=== PATIENT | female | born 1960 | race Caucasian/White ===

== ENCOUNTER 2017-11-09 00:28 | Emergency (ER) | payer MEDICARE, OTHER ==
[~2017-11-09] VITALS: Ht 165.1 cm; Wt 128.8 kg
[~2017-11-09 00:28] MED LIST: AEROECLIPSE II1 EACH MC; ALBU90OI INH; ALBU90OI6 INH; ALBU90OI61 INH; ASPI325 PO; ASPI325EC PO; ATEN25 PO; AZIT250 PO; AZIT500; Antivert12.5 MG PO; BECL40OI INH; BIOTIN FORTE PO; BREO ELLIPTA 11 EACH IH; BUPR150ER; BUPR150ER PO; BUPR75; CALCAVITD PO; CEPH500 PO; CHOL10002; CHOL10002 PO; CINA30; CINA30 PO; CITA20 PO; CLON.1 PO; CLON.5 PO; CODGUAEL PO; Coumadin7.5 MG PO; DAILYVITE PO; DESV50 PO; DILT120 PO; DILT180 PO; DILT60 PO; DOXE2.5 PO; DOXY100 PO; DULO60; Dialyvite Tabl1 EACH PO; ELIQUIS5 MG PO; FISH OIL 1,2001 EACH PO; FISH1000 PO; FLUO20 PO; FLUT110OIA IH; FOLI400 PO; FURO20 PO; FURO80 PO; GABA100 PO; HYDGUAL120 PO; HYDPAM50 PO; IBUP800 PO; LAVAP17G PO; LEVFLO500 PO; LISI20; LISI5; LOVA20 PO; Lisinopril2.5 MG; METO25ER; MIDO5 PO; NEPHROCAP PO; NICO21TP TOP; OXYACE5T PO; OXYC1TAB11; PANT40 PO; PENVK500 PO; POLY17UD PO; PRED20 PO; Percocet 10-321 EACH PO; Pindolol5 MG; Pindolol5 MG PO; Prednisone20 MG PO; Prilosec Otc20 MG PO; QVAR7.3 G1 IH; SEVEC800 PO; SPACE CHAMBER1 EACH MC; SULTRIDS PO; SUPER B-COMPLEX PO; VELPHORO500 MG PO; VENL75ER; VITAMIN D-32000 UNIT PO; VITAMIN D3 PO; Ventolin Soln3 ML INH; WARF10 PO; ZINC; Zithromax250 MG PO; [UNRECOGNIZED DRUG - CODE] SQ; [UNRECOGNIZED DRUG - OTHER]; [UNRECOGNIZED DRUG - OTHER] PO
[2017-11-09] MEDS ORDERED: HYDPAM50 PO (00:52)
[2017-11-09] MEDS ORDERED: Renvela800 MG JT (00:55)
[2017-11-09] MEDS ORDERED: Sensipar90 MG PO (00:55)
[2017-11-09 01:12] LABS: BASOPHILS ABSOLUTE AUTO 0.01 K/mm3 (0.00-0.23); BASOPHILS PERCENT AUTO 0 % (0-2); EOSINOPHILS ABSOLUTE AUTO 0.05 K/mm3 (0.00-0.68); EOSINOPHILS PERCENT AUTO 1 % (0-6); Hematocrit 30.8 % (33.0-51.0); Hemoglobin 9.5 g/dL (11.5-16.0); IMMATURE GRAN ABSOLUTE AUTO 0.01 K/mm3 (0.00-0.10); IMMATURE GRAN PERCENT AUTO 0 % (0-1); LYMPHOCYTES ABSOLUTE AUTO 1.44 K/mm3 (0.84-5.20); LYMPHOCYTES PERCENT AUTO 22 % (21-46); MONOCYTES ABSOLUTE AUTO 0.26 K/mm3 (0.16-1.47); MONOCYTES PERCENT AUTO 4 % (4-13); Mean Corpuscular HGB 30.2 pg (26.0-34.0); Mean Corpuscular HGB Conc 30.8 g/dL (31.5-36.5); Mean Corpuscular Volume 98 fL (80-100); Mean Platelet Volume 10.1 fL (9.1-12.4); NEUTROPHILS PERCENT AUTO 73 % (41-73); Platelet Count 197 K/mm3 (150-400); RDW Coefficient Variation 15.2 % (11.7-14.2); RDW Standard Deviation 54.1 fL (35.1-46.3); Red Blood Cell Count 3.15 M/mm3 (3.80-5.20); White Blood Cell Count 6.47 K/mm3 (4.00-11.30)
[2017-11-09] MEDS ORDERED: Prednisone50 MG PO (01:29)
[2017-11-09 01:31] LABS: Albumin, Blood 3.3 g/dL (3.4-5.0); Bilirubin, Total 0.3 mg/dL (0.1-1.0); Bun/Creatinine Ratio 5.8 (12.0-20.0); Calcium, Blood 8.3 mg/dL (8.5-10.1); Creatinine, Blood 5.2 mg/dL (0.40-1.00); Globulin, Blood 3.4 g/dL (2.2-4.0); Potassium, Blood 4.8 mmol/L (3.5-5.5); Total Protein, Blood 6.7 g/dL (6.4-8.2)
[2018-07-03] MEDS ORDERED: Prednisone20 MG PO (15:11)
== END 2017-11-09 02:12 | disposition home or self-care (01) ==
LOC: ER 00:28
PROVIDERS: Emergency Medicine
DX: J44.1 Chronic obstructive pulmonary disease with (acute) exacerbation (principal); I12.9 Hypertensive chronic kidney disease with stage 1 through stage 4 chronic kidney disease, or unspecified chronic kidney disease; N18.9 Chronic kidney disease, unspecified; I48.91 Unspecified atrial fibrillation; E66.01 Morbid (severe) obesity due to excess calories; F17.210 Nicotine dependence, cigarettes, uncomplicated; Z88.5 Allergy status to narcotic agent; Z99.2 Dependence on renal dialysis; Z88.8 Allergy status to other drugs, medicaments and biological substances; Z79.899 Other long term (current) drug therapy; Z79.52 Long term (current) use of systemic steroids; Z90.49 Acquired absence of other specified parts of digestive tract; Z90.89 Acquired absence of other organs
CPT/HCPCS: 36415; 71046; 80053; 85025; 93005; 93010; 94640; 99283; J1100

== ENCOUNTER 2017-11-18 11:49 | Inpatient (IN) | payer MEDICARE, OTHER ==
[~2017-11-18] VITALS: Ht 170.2 cm; Wt 134.0 kg
[~2017-11-18 11:49] MED LIST changes: +Prednisone50 MG PO; +Renvela800 MG JT; +Sensipar90 MG PO
[2017-11-18 12:29] LABS: BASOPHILS ABSOLUTE AUTO 0.01 K/mm3 (0.00-0.23); BASOPHILS PERCENT AUTO 0 % (0-2); EOSINOPHILS ABSOLUTE AUTO 0.02 K/mm3 (0.00-0.68); EOSINOPHILS PERCENT AUTO 0 % (0-6); Hematocrit 32.2 % (33.0-51.0); IMMATURE GRAN ABSOLUTE AUTO 0.17 K/mm3 (0.00-0.10); IMMATURE GRAN PERCENT AUTO 2 % (0-1); LYMPHOCYTES ABSOLUTE AUTO 0.56 K/mm3 (0.84-5.20); LYMPHOCYTES PERCENT AUTO 7 % (21-46); MONOCYTES PERCENT AUTO 1 % (4-13); Mean Corpuscular HGB 29.5 pg (26.0-34.0); Mean Corpuscular HGB Conc 31.1 g/dL (31.5-36.5); Mean Platelet Volume 9.7 fL (9.1-12.4); NEUTROPHILS ABSOLUTE AUTO 7.63 K/mm3 (1.96-9.15); NEUTROPHILS PERCENT AUTO 90 % (41-73); Platelet Count 244 K/mm3 (150-400); RDW Coefficient Variation 14.5 % (11.7-14.2); RDW Standard Deviation 50.2 fL (35.1-46.3); Red Blood Cell Count 3.39 M/mm3 (3.80-5.20); White Blood Cell Count 8.49 K/mm3 (4.00-11.30)
[2017-11-18 12:31] LABS: Mean Corpuscular Volume 95 fL (80-100)
[2017-11-18 12:51] LABS: Albumin/Globulin Ratio 0.8 (0.8-1.8); Bilirubin, Total 0.3 mg/dL (0.1-1.0); Bun/Creatinine Ratio 6.3 (12.0-20.0); Calcium, Blood 7.5 mg/dL (8.5-10.1); Creatinine, Blood 4.13 mg/dL (0.40-1.00); Potassium, Blood 4.2 mmol/L (3.5-5.5)
[2017-11-19 05:41] LABS: Albumin, Blood 2.7 g/dL (3.4-5.0); Anion Gap 15 mmol/L (6-16); Blood Urea Nitrogen 43 mg/dL (8-24); Bun/Creatinine Ratio 7.9 (12.0-20.0); CO2, Blood 25 mmol/L (21-32); Calcium, Blood 7.1 mg/dL (8.5-10.1); Chloride, Blood 98 mmol/L (98-108); Creatinine, Blood 5.46 mg/dL (0.40-1.00); Glomerular Filtration Rate 9 (60-); Glucose, Blood 205 mg/dL (70-99); Potassium, Blood 5.1 mmol/L (3.5-5.5); Sodium, Blood 138 mmol/L (136-145)
[2017-11-19 10:13] LABS: BASOPHILS PERCENT AUTO 0 % (0-2); EOSINOPHILS PERCENT AUTO 0 % (0-6); Hematocrit 29.6 % (33.0-51.0); Hemoglobin 9.3 g/dL (11.5-16.0); IMMATURE GRAN ABSOLUTE AUTO 0.18 K/mm3 (0.00-0.10); IMMATURE GRAN PERCENT AUTO 2 % (0-1); LYMPHOCYTES ABSOLUTE AUTO 0.77 K/mm3 (0.84-5.20); LYMPHOCYTES PERCENT AUTO 9 % (21-46); MONOCYTES ABSOLUTE AUTO 0.14 K/mm3 (0.16-1.47); MONOCYTES PERCENT AUTO 2 % (4-13); Mean Corpuscular HGB 29.2 pg (26.0-34.0); Mean Corpuscular HGB Conc 31.4 g/dL (31.5-36.5); Mean Corpuscular Volume 93 fL (80-100); Mean Platelet Volume 9.9 fL (9.1-12.4); NEUTROPHILS ABSOLUTE AUTO 7.23 K/mm3 (1.96-9.15); NEUTROPHILS PERCENT AUTO 87 % (41-73); Platelet Count 224 K/mm3 (150-400); RDW Coefficient Variation 14.3 % (11.7-14.2); RDW Standard Deviation 48.6 fL (35.1-46.3); Red Blood Cell Count 3.18 M/mm3 (3.80-5.20); White Blood Cell Count 8.32 K/mm3 (4.00-11.30)
[2017-11-20 06:01] LABS: HCV Non Reactive (NR)
[2017-11-20 10:50] LABS: Albumin, Blood 3.1 g/dL (3.4-5.0); Anion Gap 14 mmol/L (6-16); Blood Urea Nitrogen 64 mg/dL (8-24); Bun/Creatinine Ratio 9.7 (12.0-20.0); CO2, Blood 26 mmol/L (21-32); Chloride, Blood 96 mmol/L (98-108); Glomerular Filtration Rate 7 (60-); Glucose, Blood 187 mg/dL (70-99); Phosphorus, Blood 3.2 mg/dL (2.5-4.9); Potassium, Blood 4.9 mmol/L (3.5-5.5); Sodium, Blood 136 mmol/L (136-145)
[2017-11-21 09:40] LABS: BASOPHILS ABSOLUTE AUTO 0.02 K/mm3 (0.00-0.23); BASOPHILS PERCENT AUTO 0 % (0-2); EOSINOPHILS PERCENT AUTO 0 % (0-6); Hematocrit 30.7 % (33.0-51.0); Hemoglobin 9.6 g/dL (11.5-16.0); IMMATURE GRAN ABSOLUTE AUTO 0.73 K/mm3 (0.00-0.10); IMMATURE GRAN PERCENT AUTO 5 % (0-1); LYMPHOCYTES ABSOLUTE AUTO 0.95 K/mm3 (0.84-5.20); LYMPHOCYTES PERCENT AUTO 7 % (21-46); MONOCYTES ABSOLUTE AUTO 0.43 K/mm3 (0.16-1.47); MONOCYTES PERCENT AUTO 3 % (4-13); Mean Corpuscular HGB 29.4 pg (26.0-34.0); Mean Corpuscular HGB Conc 31.3 g/dL (31.5-36.5); Mean Corpuscular Volume 94 fL (80-100); Mean Platelet Volume 9.5 fL (9.1-12.4); NEUTROPHILS ABSOLUTE AUTO 12.54 K/mm3 (1.96-9.15); NEUTROPHILS PERCENT AUTO 86 % (41-73); Platelet Count 265 K/mm3 (150-400); RDW Coefficient Variation 14.5 % (11.7-14.2); RDW Standard Deviation 50.5 fL (35.1-46.3); Red Blood Cell Count 3.27 M/mm3 (3.80-5.20); White Blood Cell Count 14.67 K/mm3 (4.00-11.30)
[2017-11-21 10:14] LABS: Bun/Creatinine Ratio 12.7 (12.0-20.0); Calcium, Blood 7.9 mg/dL (8.5-10.1); Creatinine, Blood 5.73 mg/dL (0.40-1.00); Potassium, Blood 5.3 mmol/L (3.5-5.5)
[2017-11-22 09:19] LABS: Bun/Creatinine Ratio 14.5 (12.0-20.0); Calcium, Blood 7.9 mg/dL (8.5-10.1); Creatinine, Blood 5.53 mg/dL (0.40-1.00)
[2017-11-22] MEDS ORDERED: Azithromycin500 MG PO (13:14)
[2017-11-22] MEDS ORDERED: CEFU50SU PO (13:15)
[2018-07-03] MEDS ORDERED: Prednisone20 MG PO (15:11)
== END 2017-11-22 15:10 | disposition home or self-care (01) | DRG 682 ==
LOC: ER 11:49 → ERHOLD 17:36 → MEDS 17:36 → ENPENDDIS 11-22 11:00 → MEDS 11-22 15:10
PROVIDERS: Emergency Medicine; Family Medicine; Internal Medicine
PROC: 5A1D70Z Performance of Urinary Filtration, Intermittent, Less than 6 Hours Per Day (ICD-10-PCS; principal; 2017-11-19)
PROC: 5A1D70Z Performance of Urinary Filtration, Intermittent, Less than 6 Hours Per Day (ICD-10-PCS; 2017-11-21)
DX: I12.0 Hypertensive chronic kidney disease with stage 5 chronic kidney disease or end stage renal disease (principal); J18.1 Lobar pneumonia, unspecified organism; J96.01 Acute respiratory failure with hypoxia; N18.6 End stage renal disease; I48.0 Paroxysmal atrial fibrillation; E66.01 Morbid (severe) obesity due to excess calories; J44.1 Chronic obstructive pulmonary disease with (acute) exacerbation; Z68.42 Body mass index [BMI] 45.0-49.9, adult; E87.70 Fluid overload, unspecified; D63.1 Anemia in chronic kidney disease; E78.5 Hyperlipidemia, unspecified; F17.210 Nicotine dependence, cigarettes, uncomplicated; G89.29 Other chronic pain; Z79.52 Long term (current) use of systemic steroids; Z99.2 Dependence on renal dialysis
CPT/HCPCS: 36415; 71046; 80048; 80053; 80069; 80074; 82947; 83880; 85025; 86706; 87040; 93005; 93010; 94010; 94640; 94664; 94667; 94760; 98960; 99285; 99407; J0696; J0881; J2930; J7030

== ENCOUNTER → 2018-03-13 | Outpatient (CLI) | payer MEDICARE, OTHER ==
[~2018-03-13] MED LIST changes: +Azithromycin500 MG PO; +CEFU50SU PO
[2018-03-14 10:36] LABS: Candida species (DNA Probe) Positive (NEGATIVE); G. vaginalis (DNA Probe) Positive (NEGATIVE); T. vaginalis (DNA Probe) Negative (NEGATIVE)
== END | disposition home or self-care (01) ==
LOC: LAB SHORT 11:13 → LAB 11:13
PROVIDERS: Obstetrics & Gynecology
DX: N76.0 Acute vaginitis (principal)
CPT/HCPCS: 87480; 87510; 87660

== ENCOUNTER → 2018-05-14 | Outpatient (CLI) | payer MEDICARE, OTHER ==
[2018-05-14 12:38] LABS: Bilirubin, Urine Neg (Neg); Blood, Urine 1+ (Neg); Glucose Qualitative, Urine Neg (Neg); Ketones, Urine Neg (Neg); Leukocyte Esterase, Urine Neg (Neg); Nitrite, Urine Neg (Neg); Protein, Urine 3+ (Neg); Urobilinogen, Urine NORM (Normal)
[2018-05-14 12:59] LABS: Appearance, Urine Clear (Clear); Color, Urine Yellow (P-Yellow)
[2018-05-14 13:00] LABS: Bacteria Few /hpf; Squamous Epithelial Cells Few /hpf (Few); White Blood Cells, Urine 0-2 /hpf (0-5)
== END ==
LOC: LAB DAV 09:30
PROVIDERS: Internal Medicine
DX: R10.9 Unspecified abdominal pain (principal)
CPT/HCPCS: 81001

== ENCOUNTER 2018-05-31 01:34 | Emergency (ER) | payer MEDICARE, OTHER ==
[~2018-05-31] VITALS: Ht 170.2 cm; Wt 128.8 kg
[2018-05-31] MEDS ORDERED: Sensipar90 MG PO (02:20)
== END 2018-05-31 02:50 | disposition home or self-care (01) ==
LOC: ER 01:34
DX: M54.5 Low back pain (principal); G89.29 Other chronic pain; Z88.5 Allergy status to narcotic agent; Z88.8 Allergy status to other drugs, medicaments and biological substances; Z79.899 Other long term (current) drug therapy; Z91.013 Allergy to seafood; Z79.2 Long term (current) use of antibiotics; I10 Essential (primary) hypertension; J44.9 Chronic obstructive pulmonary disease, unspecified; I48.91 Unspecified atrial fibrillation; F17.210 Nicotine dependence, cigarettes, uncomplicated
CPT/HCPCS: 99283

== ENCOUNTER → 2018-10-10 | Outpatient (CLI) | payer MEDICARE, OTHER ==
[2018-10-10 12:00] LABS: BASOPHILS ABSOLUTE AUTO 0.02 K/mm3 (0.00-0.23); BASOPHILS PERCENT AUTO 0 % (0-2); EOSINOPHILS ABSOLUTE AUTO 0.09 K/mm3 (0.00-0.68); EOSINOPHILS PERCENT AUTO 2 % (0-6); Hemoglobin 8.3 g/dL (11.5-16.0); IMMATURE GRAN ABSOLUTE AUTO 0.02 K/mm3 (0.00-0.10); IMMATURE GRAN PERCENT AUTO 0 % (0-1); LYMPHOCYTES PERCENT AUTO 17 % (21-46); MONOCYTES ABSOLUTE AUTO 0.56 K/mm3 (0.16-1.47); MONOCYTES PERCENT AUTO 10 % (4-13); Mean Corpuscular HGB 28.4 pg (26.0-34.0); Mean Corpuscular HGB Conc 30.7 g/dL (31.5-36.5); Mean Corpuscular Volume 93 fL (80-100); Mean Platelet Volume 9.4 fL (9.1-12.4); NEUTROPHILS ABSOLUTE AUTO 3.88 K/mm3 (1.96-9.15); NEUTROPHILS PERCENT AUTO 71 % (41-73); Platelet Count 224 K/mm3 (150-400); RDW Coefficient Variation 15.8 % (11.7-14.2); RDW Standard Deviation 53.4 fL (35.1-46.3); Red Blood Cell Count 2.92 M/mm3 (3.80-5.20); White Blood Cell Count 5.47 K/mm3 (4.00-11.30)
[2018-10-10 12:14] LABS: Bun/Creatinine Ratio 5.3 (12.0-20.0); Calcium, Blood 8.6 mg/dL (8.5-10.1); Creatinine, Blood 3.98 mg/dL (0.40-1.00); Potassium, Blood 3.5 mmol/L (3.5-5.5)
[2018-10-10 12:16] LABS: Thyroid Stimulating Hormone 0.956 uIU/mL (0.360-4.800)
== END | disposition home or self-care (01) ==
LOC: LAB SHORT 09:25 → LAB 09:25
PROVIDERS: Nurse Practitioner Psychiatric/Mental Health
DX: F33.2 Major depressive disorder, recurrent severe without psychotic features (principal); Z79.899 Other long term (current) drug therapy
CPT/HCPCS: 80048; 82306; 82607; 82746; 83036; 84443; 85025

== ENCOUNTER 2019-10-18 10:24 | Day surgery (SDC) | payer MEDICARE, OTHER ==
[~2019-10-18] VITALS: Ht 170.2 cm; Wt 108.6 kg
[2019-10-18] MEDS ORDERED: WARF10 PO (10:55)
[2019-10-18] MEDS ORDERED: METO25 PO (10:56)
[2019-10-18] MEDS ORDERED: GABA100 PO (10:56)
[2019-10-18] MEDS ORDERED: OMEPRAZOLE20 MG PO (10:56)
[2019-10-18] MEDS ORDERED: AMLO10 PO (10:57)
[2019-10-18] MEDS ORDERED: Benztropine Me0.5 MG PO (10:57)
[2019-10-18] MEDS ORDERED: ARIP10 PO (10:58)
[2019-10-18] MEDS ORDERED: FISH OIL 1,001000 MG PO (10:58)
[2019-10-18] MEDS ORDERED: PERCOCET 10-321 EACH PO (10:58)
[2019-10-18] MEDS ORDERED: BREO ELLIPTA 21 EACH INH (10:59)
[2019-10-18] MEDS ORDERED: VOLTAREN100 GM TOP (11:00)
[2019-10-18] MEDS ORDERED: Ventolin/Prove6.7 GM INH (11:00)
[2019-10-18 11:45] LABS: BASOPHILS ABSOLUTE AUTO 0.03 K/mm3 (0.00-0.23); BASOPHILS PERCENT AUTO 1 % (0-2); EOSINOPHILS ABSOLUTE AUTO 0.08 K/mm3 (0.00-0.68); EOSINOPHILS PERCENT AUTO 2 % (0-6); Hematocrit 36.8 % (33.0-51.0); Hemoglobin 12.1 g/dL (11.5-16.0); IMMATURE GRAN ABSOLUTE AUTO 0.01 K/mm3 (0.00-0.10); IMMATURE GRAN PERCENT AUTO 0 % (0-1); LYMPHOCYTES PERCENT AUTO 37 % (21-46); MONOCYTES ABSOLUTE AUTO 0.36 K/mm3 (0.16-1.47); MONOCYTES PERCENT AUTO 8 % (4-13); Mean Corpuscular HGB 30.9 pg (26.0-34.0); Mean Corpuscular HGB Conc 32.9 g/dL (31.5-36.5); Mean Corpuscular Volume 94 fL (80-100); NEUTROPHILS ABSOLUTE AUTO 2.24 K/mm3 (1.96-9.15); NEUTROPHILS PERCENT AUTO 52 % (41-73); Platelet Count 125 K/mm3 (150-400); RDW Coefficient Variation 13.4 % (11.7-14.2); Red Blood Cell Count 3.92 M/mm3 (3.80-5.20); White Blood Cell Count 4.32 K/mm3 (4.00-11.30)
[2019-10-18 11:57] LABS: International Normalized Ratio 1.08; Prothrombin Time Results 11.4 Sec (9.7-11.5)
[2019-10-18 12:03] LABS: Bun/Creatinine Ratio 5.1 (12.0-20.0); Calcium, Blood 9.3 mg/dL (8.5-10.1); Creatinine, Blood 3.32 mg/dL (0.40-1.00); Potassium, Blood 4.2 mmol/L (3.5-5.5)
--- NOTE | 2019-10-18 13:14 | NUR ---
DISCHARGE PT REMAINED A&OX3 DURING RECOVERY AND DENIED ANY PAIN. IV DC'D WITH CANULA IN TACT. DISCHARGE PAPERWORK GONE OVER WITH PT AND SON. PT AND SON VERVBALLY STATED THEY UNDERSTANDING OF THE DISCHARGE EDUCATION AND DENIED ANY QUESTIONS AT THIS TIME. PT REFUSED WHEELCHAIR AND WALKED OUT WITH SON. MEDICATIONS WASTED WITH GERALDINE Ferrell RN.
== END 2019-10-18 22:53 | disposition home or self-care (01) ==
LOC: MHTC 10:24
PROVIDERS: Internal Medicine Cardiovascular Disease
DX: I48.19 Other persistent atrial fibrillation (principal); I27.20 Pulmonary hypertension, unspecified; I13.2 Hypertensive heart and chronic kidney disease with heart failure and with stage 5 chronic kidney disease, or end stage renal disease; N18.6 End stage renal disease; D63.1 Anemia in chronic kidney disease; I08.1 Rheumatic disorders of both mitral and tricuspid valves; E78.5 Hyperlipidemia, unspecified; J44.9 Chronic obstructive pulmonary disease, unspecified; F17.210 Nicotine dependence, cigarettes, uncomplicated; E66.01 Morbid (severe) obesity due to excess calories; Z99.2 Dependence on renal dialysis; Z88.8 Allergy status to other drugs, medicaments and biological substances; Z88.5 Allergy status to narcotic agent; Z79.01 Long term (current) use of anticoagulants; Z79.899 Other long term (current) drug therapy; Z68.39 Body mass index [BMI] 39.0-39.9, adult; Z88.4 Allergy status to anesthetic agent
CPT/HCPCS: 80048; 85025; 85610; 93312; 93325; 99152; J2250; J3010; J7030

== ENCOUNTER 2020-09-12 22:54 | Emergency (ER) | payer MEDICARE, OTHER ==
[~2020-09-12] VITALS: Ht 170.2 cm; Wt 113.4 kg
[~2020-09-12 22:54] MED LIST changes: +AMLO10 PO; +ARIP10 PO; +BREO ELLIPTA 21 EACH INH; +Benztropine Me0.5 MG PO; +FISH OIL 1,001000 MG PO; +HYDR1TAB94 PO; +METO25 PO; +OMEPRAZOLE20 MG PO; +PERCOCET 10-321 EACH PO; +VOLTAREN100 GM TOP; +Ventolin/Prove6.7 GM INH
[2020-09-13 00:26] LABS: Influenza A, PCR Negative (NEGATIVE); Influenza B, PCR Negative (NEGATIVE); Resp Syncytial Virus, PCR Negative (NEGATIVE); SARS-Cov-2 (COVID-19) PCR, MMC Negative (NEGATIVE)
[2020-09-13] MEDS ORDERED: ALBU2.5V5 INH (01:51)
[2020-09-13] MEDS ORDERED: AEROECLIPSE II1 EACH MC (01:51)
[2020-09-13] MEDS ORDERED: Prednisone50 MG PO (01:52)
== END 2020-09-13 02:23 | disposition home or self-care (01) ==
LOC: ER 22:54
PROVIDERS: Emergency Medicine
DX: J45.901 Unspecified asthma with (acute) exacerbation (principal); I48.91 Unspecified atrial fibrillation; I12.0 Hypertensive chronic kidney disease with stage 5 chronic kidney disease or end stage renal disease; N18.6 End stage renal disease; J44.9 Chronic obstructive pulmonary disease, unspecified; F17.210 Nicotine dependence, cigarettes, uncomplicated; Z79.899 Other long term (current) drug therapy; Z79.01 Long term (current) use of anticoagulants; Z20.828 Contact with and (suspected) exposure to other viral communicable diseases; Z88.4 Allergy status to anesthetic agent; Z88.5 Allergy status to narcotic agent; Z88.8 Allergy status to other drugs, medicaments and biological substances; Z88.1 Allergy status to other antibiotic agents
CPT/HCPCS: 0241U; 71045; 93005; 93010; 94640; 99285-25; J7512

== ENCOUNTER 2021-03-20 13:46 | Emergency (ER) | payer MEDICARE, OTHER ==
[~2021-03-20] VITALS: Ht 170.2 cm; Wt 113.4 kg
[~2021-03-20 13:46] MED LIST changes: +ALBU2.5V5 INH; +DELTASONE20 MG PO
[2021-03-20 14:54] LABS: BASOPHILS ABSOLUTE AUTO 0.03 K/mm3 (0.00-0.23); BASOPHILS PERCENT AUTO 0 % (0-2); EOSINOPHILS PERCENT AUTO 1 % (0-6); Hematocrit 36.4 % (33.0-51.0); IMMATURE GRAN ABSOLUTE AUTO 0.03 K/mm3 (0.00-0.10); IMMATURE GRAN PERCENT AUTO 0 % (0-1); LYMPHOCYTES ABSOLUTE AUTO 1.89 K/mm3 (0.84-5.20); LYMPHOCYTES PERCENT AUTO 24 % (21-46); MONOCYTES ABSOLUTE AUTO 0.51 K/mm3 (0.16-1.47); MONOCYTES PERCENT AUTO 6 % (4-13); Mean Corpuscular Volume 100 fL (80-100); Mean Platelet Volume 10.1 fL (9.1-12.4); NEUTROPHILS ABSOLUTE AUTO 5.43 K/mm3 (1.96-9.15); NEUTROPHILS PERCENT AUTO 68 % (41-73); Platelet Count 193 K/mm3 (150-400); RDW Coefficient Variation 14.5 % (11.7-14.2); RDW Standard Deviation 53.4 fL (35.1-46.3); Red Blood Cell Count 3.64 M/mm3 (3.80-5.20); White Blood Cell Count 7.99 K/mm3 (4.00-11.30)
[2021-03-20 15:14] LABS: Alanine Aminotransfer (ALT/SGP 22 U/L (12-78); Albumin, Blood 3.2 g/dL (3.4-5.0); Albumin/Globulin Ratio 0.8 (0.8-1.8); Alk Phos 180 U/L (50-136); Anion Gap 5 mmol/L (6-16); Aspartate Aminotrans (AST/SGOT 10 U/L (12-37); Bilirubin, Total 0.4 mg/dL (0.1-1.0); Blood Urea Nitrogen 18 mg/dL (8-24); CO2, Blood 36 mmol/L (21-32); Calcium, Blood 8.3 mg/dL (8.5-10.1); Chloride, Blood 96 mmol/L (98-108); Globulin, Blood 3.8 g/dL (2.2-4.0); Glomerular Filtration Rate 14 (60-); Glucose, Blood 133 mg/dL (70-99); Potassium, Blood 3.6 mmol/L (3.5-5.5); Sodium, Blood 137 mmol/L (136-145); Troponin I <0.015 ng/mL (0.000-0.040)
== END 2021-03-20 19:00 | disposition home or self-care (01) ==
LOC: ER 13:46
PROVIDERS: Physician Assistant
DX: J81.1 Chronic pulmonary edema (principal); J44.9 Chronic obstructive pulmonary disease, unspecified; F17.210 Nicotine dependence, cigarettes, uncomplicated; Z79.899 Other long term (current) drug therapy; Z88.5 Allergy status to narcotic agent; Z88.8 Allergy status to other drugs, medicaments and biological substances
CPT/HCPCS: 36415; 71046; 80053; 83880; 84484; 85025; 93005; 93010; 99284-25

== ENCOUNTER 2021-04-06 14:05 | Emergency (ER) | payer MEDICARE, OTHER ==
[~2021-04-06] VITALS: Ht 170.2 cm; Wt 113.4 kg
[2021-04-06] MEDS ORDERED: FURO80 PO (15:38)
== END 2021-04-06 15:59 | disposition home or self-care (01) ==
LOC: ER 14:05
DX: E87.70 Fluid overload, unspecified (principal); J44.9 Chronic obstructive pulmonary disease, unspecified; I12.0 Hypertensive chronic kidney disease with stage 5 chronic kidney disease or end stage renal disease; N18.6 End stage renal disease; Z88.5 Allergy status to narcotic agent; Z88.8 Allergy status to other drugs, medicaments and biological substances; Z79.52 Long term (current) use of systemic steroids; Z79.899 Other long term (current) drug therapy; R42 Dizziness and giddiness; J98.11 Atelectasis
CPT/HCPCS: 71046; 80048; 83880; 84443; 85025; 93005; 93010; 99283-25; A9270

== ENCOUNTER 2022-05-04 18:30 | Emergency (ER) | payer MEDICARE, OTHER ==
[~2022-05-04] VITALS: Ht 170.2 cm; Wt 108.9 kg
[~2022-05-04 18:30] MED LIST changes: +ARIPIPRAZOLE30 MG PO; +DESVENLAFAXINE100 M3 PO; +OXYCODONE ACET PO; -Renvela800 MG JT; +Renvela800 MG PO
[2022-05-04 19:50] LABS: Influenza B, PCR NEGATIVE (NEGATIVE); Resp Syncytial Virus, PCR NEGATIVE (NEGATIVE); SARS-Cov-2 (COVID-19) PCR, MMC NEGATIVE (NEGATIVE)
[2022-05-04 20:03] LABS: Influenza A, PCR POSITIVE (NEGATIVE)
[2022-05-04 21:13] LABS: BASOPHILS ABSOLUTE AUTO 0.01 K/mm3 (0.00-0.23); BASOPHILS PERCENT AUTO 0 % (0-2); EOSINOPHILS ABSOLUTE AUTO 0.02 K/mm3 (0.00-0.68); EOSINOPHILS PERCENT AUTO 0 % (0-6); Hematocrit 30.6 % (33.0-51.0); Hemoglobin 9.8 g/dL (11.5-16.0); IMMATURE GRAN ABSOLUTE AUTO 0.07 K/mm3 (0.00-0.10); IMMATURE GRAN PERCENT AUTO 2 % (0-1); LYMPHOCYTES ABSOLUTE AUTO 1.44 K/mm3 (0.84-5.20); LYMPHOCYTES PERCENT AUTO 31 % (21-46); MONOCYTES ABSOLUTE AUTO 0.35 K/mm3 (0.16-1.47); MONOCYTES PERCENT AUTO 7 % (4-13); Mean Corpuscular HGB 32.5 pg (26.0-34.0); Mean Corpuscular Volume 101 fL (80-100); Mean Platelet Volume 10.4 fL (9.1-12.4); NEUTROPHILS ABSOLUTE AUTO 2.83 K/mm3 (1.96-9.15); NEUTROPHILS PERCENT AUTO 60 % (41-73); Platelet Count 199 K/mm3 (150-400); RDW Coefficient Variation 13.5 % (11.7-14.2); RDW Standard Deviation 50.1 fL (35.1-46.3); Red Blood Cell Count 3.02 M/mm3 (3.80-5.20); White Blood Cell Count 4.72 K/mm3 (4.00-11.30)
[2022-05-04 21:30] LABS: Albumin, Blood 2.9 g/dL (3.4-5.0); Albumin/Globulin Ratio 0.7 (0.8-1.8); Bilirubin, Total 0.4 mg/dL (0.1-1.0); Bun/Creatinine Ratio 4.8 (12.0-20.0); Calcium, Blood 9.9 mg/dL (8.5-10.1); Creatinine, Blood 4.38 mg/dL (0.40-1.00); Globulin, Blood 3.9 g/dL (2.2-4.0); Potassium, Blood 3.9 mmol/L (3.5-5.5); Total Protein, Blood 6.8 g/dL (6.4-8.2)
[2022-05-04] MEDS ORDERED: Vibramycin100 MG PO (22:31)
== END 2022-05-04 22:51 | disposition home or self-care (01) ==
LOC: ER 18:30
PROVIDERS: Student in an Organized Health Care Education/Training Program
DX: J10.1 Influenza due to other identified influenza virus with other respiratory manifestations (principal); I12.0 Hypertensive chronic kidney disease with stage 5 chronic kidney disease or end stage renal disease; N18.6 End stage renal disease; Z99.2 Dependence on renal dialysis; J44.9 Chronic obstructive pulmonary disease, unspecified; F17.200 Nicotine dependence, unspecified, uncomplicated; Z79.899 Other long term (current) drug therapy; Z88.5 Allergy status to narcotic agent; Z88.8 Allergy status to other drugs, medicaments and biological substances; Z20.822 Contact with and (suspected) exposure to COVID-19
CPT/HCPCS: 0241U; 71046; 80053; 84484; 85025; 93005; 93010; J0696

== ENCOUNTER 2022-05-08 08:20 | Inpatient (IN) | payer MEDICARE, OTHER ==
[~2022-05-08] VITALS: Ht 180.3 cm; Wt 104.5 kg
[~2022-05-08 08:20] MED LIST changes: +Vibramycin100 MG PO
[2022-05-08 09:25] LABS: BASOPHILS ABSOLUTE AUTO 0.01 K/mm3 (0.00-0.23); BASOPHILS PERCENT AUTO 0 % (0-2); EOSINOPHILS PERCENT AUTO 0 % (0-6); Hematocrit 28.8 % (33.0-51.0); Hemoglobin 9.6 g/dL (11.5-16.0); IMMATURE GRAN ABSOLUTE AUTO 0.13 K/mm3 (0.00-0.10); IMMATURE GRAN PERCENT AUTO 3 % (0-1); LYMPHOCYTES ABSOLUTE AUTO 0.49 K/mm3 (0.84-5.20); LYMPHOCYTES PERCENT AUTO 10 % (21-46); MONOCYTES ABSOLUTE AUTO 0.22 K/mm3 (0.16-1.47); MONOCYTES PERCENT AUTO 5 % (4-13); Mean Corpuscular HGB Conc 33.3 g/dL (31.5-36.5); Mean Corpuscular Volume 99 fL (80-100); Mean Platelet Volume 9.8 fL (9.1-12.4); NEUTROPHILS ABSOLUTE AUTO 3.97 K/mm3 (1.96-9.15); NEUTROPHILS PERCENT AUTO 82 % (41-73); Platelet Count 184 K/mm3 (150-400); RDW Coefficient Variation 13.3 % (11.7-14.2); RDW Standard Deviation 48.2 fL (35.1-46.3); Red Blood Cell Count 2.91 M/mm3 (3.80-5.20); White Blood Cell Count 4.82 K/mm3 (4.00-11.30)
[2022-05-08 09:26] LABS: Base Excess Venous 14.5 mmol/L; Bicarbonate Venous 36.8 mmol/L (24.0-30.0); PCO2 Venous 48.3 mmHg (38-42)
[2022-05-08 09:47] LABS: Albumin, Blood 2.7 g/dL (3.4-5.0); Albumin/Globulin Ratio 0.7 (0.8-1.8); Bilirubin, Total 0.4 mg/dL (0.1-1.0); Bun/Creatinine Ratio 4.9 (12.0-20.0); Calcium, Blood 9.8 mg/dL (8.5-10.1); Creatinine, Blood 4.5 mg/dL (0.40-1.00); Globulin, Blood 4.1 g/dL (2.2-4.0); Magnesium, Blood 2.1 mg/dL (1.6-2.4); Potassium, Blood 4.8 mmol/L (3.5-5.5); Total Protein, Blood 6.8 g/dL (6.4-8.2)
[2022-05-08 10:05] LABS: Influenza B, PCR NEGATIVE (NEGATIVE); Resp Syncytial Virus, PCR NEGATIVE (NEGATIVE); SARS-Cov-2 (COVID-19) PCR, MMC NEGATIVE (NEGATIVE)
[2022-05-08 10:07] LABS: Influenza A, PCR POSITIVE (NEGATIVE)
[2022-05-08] MEDS ORDERED: MIDODRINE HCL10 M9 PO (21:07)
[2022-05-08] MEDS ORDERED: DOXYCYCLINE HY100 M1 PO (21:09)
[2022-05-09 05:27] LABS: Hematocrit 28.8 % (33.0-51.0); Hemoglobin 9.3 g/dL (11.5-16.0); Mean Corpuscular HGB 32.5 pg (26.0-34.0); Mean Corpuscular HGB Conc 32.3 g/dL (31.5-36.5); Mean Corpuscular Volume 101 fL (80-100); Mean Platelet Volume 10.1 fL (9.1-12.4); Platelet Count 187 K/mm3 (150-400); RDW Coefficient Variation 13.2 % (11.7-14.2); RDW Standard Deviation 48.5 fL (35.1-46.3); Red Blood Cell Count 2.86 M/mm3 (3.80-5.20); White Blood Cell Count 7.25 K/mm3 (4.00-11.30)
[2022-05-09 06:02] LABS: Bun/Creatinine Ratio 6.2 (12.0-20.0); Calcium, Blood 9.7 mg/dL (8.5-10.1); Creatinine, Blood 5.2 mg/dL (0.40-1.00); Potassium, Blood 4.4 mmol/L (3.5-5.5)
--- NOTE | 2022-05-09 06:08 | NUR ---
SHIFT SUMMARY NOC: PT TO FLOOR AT 1945. PT ALERT/ORIENTATED*2-3, CONFUSED, POOR HISTORIAN FOR ADMISSION QUESTIONS, AND MEDICATION REVIEW. AFIB 50-70'S WITH FREQUENT PAUSES AROUND 2 SECONDS. WHEN PT IN DEEP SLEEP HR TOUCHES 39. ON 2L NC, LUNGS RIGHT COARSE/WHEEZY, LEFT WHEEZY, NON PRODUCTIVE COUGH. PT OLIGURIC. HD FISTULA TO LEFT UPPER ARM. SBA TO COMMODE.
--- NOTE | 2022-05-09 08:00 | NUR ---
pt laying in bed watching tv, a/ox3, cooperative with care, follows commands lungs are clear in upper oscar, dim in bases, resp even and unlabored, no cough noted, hrirr, murmur noted, tele in place running afib per monitor, see strip, trace edema noted, ppp faint, cap refill <3sec, vs stable, afebrile, iv site is clear and patent, btx4, abd flat soft nontender, voids without diff, scant urine output, skin dusky but c/w/d, maew, stand by assist to move, jil, call light in reach.
--- NOTE | 2022-05-09 09:00 | NUR ---
pt going to dialysis via bed with memorial marker designer in attendence.
--- NOTE | 2022-05-09 12:04 | NUR ---
tele [facility] tech called to report pt had a 3 second pause, will notify when she rounds. pt still in dialysis.
[2022-05-09 17:29] LABS: Vancomycin, Random 21.2 ug/mL
--- NOTE | 2022-05-09 18:54 | NUR ---
no acute changes this shift, resting quietly in bed watching tv, no complaints after h/a went away. call light in reach.
[2022-05-10 05:17] LABS: BASOPHILS PERCENT AUTO 0 % (0-2); EOSINOPHILS ABSOLUTE AUTO 0.03 K/mm3 (0.00-0.68); EOSINOPHILS PERCENT AUTO 1 % (0-6); Hematocrit 28.2 % (33.0-51.0); IMMATURE GRAN PERCENT AUTO 2 % (0-1); LYMPHOCYTES ABSOLUTE AUTO 1.17 K/mm3 (0.84-5.20); LYMPHOCYTES PERCENT AUTO 18 % (21-46); MONOCYTES PERCENT AUTO 6 % (4-13); Mean Corpuscular HGB 32.1 pg (26.0-34.0); Mean Corpuscular HGB Conc 31.9 g/dL (31.5-36.5); Mean Corpuscular Volume 101 fL (80-100); Mean Platelet Volume 9.6 fL (9.1-12.4); NEUTROPHILS PERCENT AUTO 74 % (41-73); Platelet Count 189 K/mm3 (150-400); RDW Coefficient Variation 13.8 % (11.7-14.2)
--- NOTE | 2022-05-10 05:32 | NUR ---
SHIFT SUMMARY NOC: PT SLEPT ALL NIGHT. UNABLE TO PRODUCE SPUTUM FOR LAB SAMPLE. NO ACUTE EVENTS.
[2022-05-10 06:00] LABS: Alanine Aminotransfer (ALT/SGP 25 U/L (12-78); Albumin, Blood 2.5 g/dL (3.4-5.0); Albumin/Globulin Ratio 0.7 (0.8-1.8); Alk Phos 181 U/L (50-136); Anion Gap 9 mmol/L (6-16); Aspartate Aminotrans (AST/SGOT 20 U/L (12-37); Bilirubin, Total 0.8 mg/dL (0.1-1.0); Blood Urea Nitrogen 21 mg/dL (8-24); Bun/Creatinine Ratio 5.2 (12.0-20.0); CO2, Blood 32 mmol/L (21-32); Calcium, Blood 9.6 mg/dL (8.5-10.1); Chloride, Blood 94 mmol/L (98-108); Creatinine, Blood 4.04 mg/dL (0.40-1.00); Globulin, Blood 3.6 g/dL (2.2-4.0); Glomerular Filtration Rate 12 (60-); Glucose, Blood 89 mg/dL (70-99); Phosphorus, Blood 3.2 mg/dL (2.5-4.9); Potassium, Blood 3.9 mmol/L (3.5-5.5); Sodium, Blood 135 mmol/L (136-145); Total Protein, Blood 6.1 g/dL (6.4-8.2); Vancomycin, Random 19.1 ug/mL
--- NOTE | 2022-05-10 14:50 | NUR ---
PATIENT HEART RATE INCREASING TO 150S DURING EXERTION. HEART RATE BACK DOWN TO 80S AT REST. DR ANTONY.
--- NOTE | 2022-05-10 17:32 | NUR ---
SHIFT SUMMARY PATIENT A&OX3 WITH MILD CONFUSION. ON DROPLET PRECAU FOR INFLUENZA A. PATIENT STRUGGLES TO ANSWER QUESTIONS AND EASILY FRUSTRATED WITH SELF BEING UNABLE TO ANSWER STATING SHE SHOULD KNOW THESE ANSWERS. SBA TO RESTROOM WITH WALKER. ON TELE A-FIB 80-90S. HR INCREASING WITH EXERTION TO 150S. HOME MEDS RESTARTED THIS AFTERNOON. PATIENT RECEIVED DIALYSIS YESTERDAY AND NORMAL DAYS ARE E//SAT. NEW IV PLACED WITH ULTRASOUND. WILL CONTINUE TO MONITOR.
--- NOTE | 2022-05-11 05:37 | NUR ---
SHIFT SUMMARY NOC: PT RESTLESS UP AND DOWN ALL NIGHT, INDEPENDENT IN ROOM WITH FWW. PT GIVEN SHOWER THIS MORNING. NO ACUTE EVENTS.
[2022-05-11 09:58] LABS: BASOPHILS ABSOLUTE AUTO 0.01 K/mm3 (0.00-0.23); BASOPHILS PERCENT AUTO 0 % (0-2); EOSINOPHILS ABSOLUTE AUTO 0.06 K/mm3 (0.00-0.68); EOSINOPHILS PERCENT AUTO 1 % (0-6); Hematocrit 30.6 % (33.0-51.0); Hemoglobin 10.1 g/dL (11.5-16.0); IMMATURE GRAN PERCENT AUTO 1 % (0-1); LYMPHOCYTES ABSOLUTE AUTO 1.29 K/mm3 (0.84-5.20); LYMPHOCYTES PERCENT AUTO 18 % (21-46); MONOCYTES ABSOLUTE AUTO 0.34 K/mm3 (0.16-1.47); MONOCYTES PERCENT AUTO 5 % (4-13); Mean Corpuscular HGB 32.5 pg (26.0-34.0); Mean Corpuscular Volume 98 fL (80-100); Mean Platelet Volume 9.7 fL (9.1-12.4); NEUTROPHILS ABSOLUTE AUTO 5.36 K/mm3 (1.96-9.15); NEUTROPHILS PERCENT AUTO 75 % (41-73); Platelet Count 231 K/mm3 (150-400); RDW Coefficient Variation 13.8 % (11.7-14.2); RDW Standard Deviation 47.8 fL (35.1-46.3); Red Blood Cell Count 3.11 M/mm3 (3.80-5.20); White Blood Cell Count 7.16 K/mm3 (4.00-11.30)
[2022-05-11 10:17] LABS: Bun/Creatinine Ratio 6.2 (12.0-20.0); Calcium, Blood 9.7 mg/dL (8.5-10.1); Creatinine, Blood 4.05 mg/dL (0.40-1.00); Potassium, Blood 3.5 mmol/L (3.5-5.5)
[2022-05-11] MEDS ORDERED: CEFP200 PO (11:10)
[2022-05-11] MEDS ORDERED: GUAIFENESIN ER600 MG PO (11:11)
[2022-05-11] MEDS ORDERED: OSELTAMIVIR PHO30 M2 PO (11:12)
[2022-05-11] MEDS ORDERED: VISBIOME 112.51 EACH PO (11:12)
--- NOTE | 2022-05-11 11:46 | NUR ---
DIALYSIS KIND OF RESTLESS ON TX, KEPT CALLING US OVER ASKING QUESTIONS. " HOW MUCH LONGER" ETC. ASKED TO COME OFF, TRIED TO TALK HER OUT OF IT. UNABLE TO. OFF 27 MIN EARLY. 2327 ML UF AT [address]2. DR BOWENS NOTIFIED.
[2022-05-11 12:24] LABS: Vancomycin, Random 9.9 ug/mL
--- NOTE | 2022-05-11 12:45 | NUR ---
PT DISCHARGED AFTER DIALYSIS TODAY. THE PT VERBALIZED UNDERSTANDING OF THE DC INSTRUCTIONS. THE PT WAS REMINDED TO SCHEDULE A FOLLOW UP APPOINTMENT ON FRIDAY. THE PTS PRESCRIPTIONS WERE FAXED TO [facility]. THE PT WAS TRANSFERED VIA WHEELCHAIR ACCOMPANIED BY THE CLASS C DRIVER AND HER SON.
== END 2022-05-11 13:05 | disposition home or self-care (01) | DRG 193 ==
LOC: ER 08:20 → MEDS 17:31
PROVIDERS: Family Medicine; Nurse Practitioner Acute Care; Student in an Organized Health Care Education/Training Program; ADMIT Family Medicine
PROC: 5A1D70Z Performance of Urinary Filtration, Intermittent, Less than 6 Hours Per Day (ICD-10-PCS; principal; 2022-05-09)
DX: J10.01 Influenza due to other identified influenza virus with the same other identified influenza virus pneumonia (principal); G92.8 Other toxic encephalopathy; J96.01 Acute respiratory failure with hypoxia; N18.6 End stage renal disease; E87.1 Hypo-osmolality and hyponatremia; J44.0 Chronic obstructive pulmonary disease with (acute) lower respiratory infection; I13.2 Hypertensive heart and chronic kidney disease with heart failure and with stage 5 chronic kidney disease, or end stage renal disease; J15.9 Unspecified bacterial pneumonia; I48.91 Unspecified atrial fibrillation; E66.01 Morbid (severe) obesity due to excess calories; D63.1 Anemia in chronic kidney disease; Z99.2 Dependence on renal dialysis; F17.210 Nicotine dependence, cigarettes, uncomplicated; I50.9 Heart failure, unspecified; Z20.822 Contact with and (suspected) exposure to COVID-19; F32.A Depression, unspecified; I08.1 Rheumatic disorders of both mitral and tricuspid valves; Z88.5 Allergy status to narcotic agent; Z98.890 Other specified postprocedural states; Z88.8 Allergy status to other drugs, medicaments and biological substances; Z79.899 Other long term (current) drug therapy; Z79.51 Long term (current) use of inhaled steroids; Z79.891 Long term (current) use of opiate analgesic; Z79.01 Long term (current) use of anticoagulants; Z90.49 Acquired absence of other specified parts of digestive tract; Z79.2 Long term (current) use of antibiotics; Z95.828 Presence of other vascular implants and grafts; Z68.34 Body mass index [BMI] 34.0-34.9, adult; Z28.39 Other underimmunization status
CPT/HCPCS: 0241U; 36415; 71045; 80048; 80053; 80202; 82803; 83735; 83880; 84100; 84145; 85025; 85027; 87449; 93005; 93010; 94640; 94760; 94761; 96365; 96366; 96367; 96375; 97162; 97165; 97530; 97535; 99285-25; A9270; J0696; J1940; J3370; J7060; Q5106

== ENCOUNTER 2022-08-23 11:08 | Emergency (ER) | payer MEDICARE, OTHER ==
[~2022-08-23] VITALS: Ht 167.6 cm; Wt 104.3 kg
[~2022-08-23 11:08] MED LIST changes: +CEFP200 PO; +DOXYCYCLINE HY100 M1 PO; +GUAIFENESIN ER600 MG PO; +MIDODRINE HCL10 M9 PO; +OSELTAMIVIR PHO30 M2 PO; +VISBIOME 112.51 EACH PO
[2022-08-23 11:59] LABS: BASOPHILS ABSOLUTE AUTO 0.01 K/mm3 (0.00-0.23); BASOPHILS PERCENT AUTO 0 % (0-2); EOSINOPHILS ABSOLUTE AUTO 0.03 K/mm3 (0.00-0.68); EOSINOPHILS PERCENT AUTO 1 % (0-6); Hematocrit 31.7 % (33.0-51.0); Hemoglobin 10.3 g/dL (11.5-16.0); IMMATURE GRAN ABSOLUTE AUTO 0.01 K/mm3 (0.00-0.10); IMMATURE GRAN PERCENT AUTO 0 % (0-1); LYMPHOCYTES ABSOLUTE AUTO 0.83 K/mm3 (0.84-5.20); LYMPHOCYTES PERCENT AUTO 18 % (21-46); MONOCYTES PERCENT AUTO 7 % (4-13); Mean Corpuscular HGB 32.1 pg (26.0-34.0); Mean Corpuscular HGB Conc 32.5 g/dL (31.5-36.5); Mean Corpuscular Volume 99 fL (80-100); Mean Platelet Volume 10.7 fL (9.1-12.4); NEUTROPHILS ABSOLUTE AUTO 3.36 K/mm3 (1.96-9.15); NEUTROPHILS PERCENT AUTO 74 % (41-73); Platelet Count 170 K/mm3 (150-400); RDW Coefficient Variation 13.6 % (11.7-14.2); RDW Standard Deviation 49.8 fL (35.1-46.3); Red Blood Cell Count 3.21 M/mm3 (3.80-5.20); White Blood Cell Count 4.54 K/mm3 (4.00-11.30)
[2022-08-23 12:12] LABS: Albumin, Blood 2.9 g/dL (3.4-5.0); Albumin/Globulin Ratio 0.8 (0.8-1.8); Bilirubin, Total 0.6 mg/dL (0.1-1.0); Bun/Creatinine Ratio 4.4 (12.0-20.0); Calcium, Blood 9.3 mg/dL (8.5-10.1); Creatinine, Blood 4.58 mg/dL (0.40-1.00); Globulin, Blood 3.7 g/dL (2.2-4.0); Potassium, Blood 4.2 mmol/L (3.5-5.5); Total Protein, Blood 6.6 g/dL (6.4-8.2)
[2022-08-23] MEDS ORDERED: LEVO750 PO (14:58)
== END 2022-08-23 15:45 | disposition home or self-care (01) ==
LOC: ER 11:08
PROVIDERS: Student in an Organized Health Care Education/Training Program
DX: J18.9 Pneumonia, unspecified organism (principal); I10 Essential (primary) hypertension; F17.200 Nicotine dependence, unspecified, uncomplicated; Z88.5 Allergy status to narcotic agent; Z88.8 Allergy status to other drugs, medicaments and biological substances; Z79.899 Other long term (current) drug therapy; Z99.2 Dependence on renal dialysis
CPT/HCPCS: 36415; 71045; 80053; 84484; 85025; 93005; 93010; J3010

== ENCOUNTER 2022-08-31 15:02 | Inpatient (IN) | payer MEDICARE, OTHER ==
[~2022-08-31] VITALS: Ht 170.2 cm; Wt 101.3 kg
[~2022-08-31 15:02] MED LIST changes: -DESVENLAFAXINE100 M3 PO; +EFFEXOR XR37.5 MG PO; +LEVO750 PO; -Ventolin/Prove6.7 GM INH
[2022-08-31 16:31] LABS: BASOPHILS ABSOLUTE AUTO 0.03 K/mm3 (0.00-0.23); BASOPHILS PERCENT AUTO 1 % (0-2); EOSINOPHILS ABSOLUTE AUTO 0.05 K/mm3 (0.00-0.68); EOSINOPHILS PERCENT AUTO 1 % (0-6); Hematocrit 32.2 % (33.0-51.0); Hemoglobin 10.2 g/dL (11.5-16.0); IMMATURE GRAN ABSOLUTE AUTO 0.03 K/mm3 (0.00-0.10); IMMATURE GRAN PERCENT AUTO 1 % (0-1); LYMPHOCYTES ABSOLUTE AUTO 0.98 K/mm3 (0.84-5.20); LYMPHOCYTES PERCENT AUTO 17 % (21-46); MONOCYTES ABSOLUTE AUTO 0.51 K/mm3 (0.16-1.47); MONOCYTES PERCENT AUTO 9 % (4-13); Mean Corpuscular HGB Conc 31.7 g/dL (31.5-36.5); Mean Corpuscular Volume 101 fL (80-100); Mean Platelet Volume 10.4 fL (9.1-12.4); NEUTROPHILS ABSOLUTE AUTO 4.13 K/mm3 (1.96-9.15); NEUTROPHILS PERCENT AUTO 72 % (41-73); Platelet Count 166 K/mm3 (150-400); RDW Coefficient Variation 14.2 % (11.7-14.2); RDW Standard Deviation 52.3 fL (35.1-46.3); Red Blood Cell Count 3.19 M/mm3 (3.80-5.20); White Blood Cell Count 5.73 K/mm3 (4.00-11.30)
[2022-08-31 16:54] LABS: Albumin, Blood 2.7 g/dL (3.4-5.0); Albumin/Globulin Ratio 0.7 (0.8-1.8); Bilirubin, Total 0.3 mg/dL (0.1-1.0); Bun/Creatinine Ratio 5.2 (12.0-20.0); Creatinine, Blood 3.3 mg/dL (0.40-1.00); Potassium, Blood 4.2 mmol/L (3.5-5.5); Total Protein, Blood 6.7 g/dL (6.4-8.2)
[2022-08-31 17:38] LABS: Influenza A, PCR NEGATIVE (NEGATIVE); Influenza B, PCR NEGATIVE (NEGATIVE); Resp Syncytial Virus, PCR NEGATIVE (NEGATIVE); SARS-Cov-2 (COVID-19) PCR, MMC NEGATIVE (NEGATIVE)
[2022-08-31 18:34] LABS: PCO2 Arterial 51.6 mmHg (35-45); pH Blood Arterial 7.47 (7.35-7.45)
[2022-08-31 18:35] LABS: PO2 Arterial 52.8 mmHg (80-100)
--- NOTE | 2022-08-31 23:53 | NUR ---
ADMISSION: PATIENT IS RECIEVED FROM ER VIA WHEELCHAIR. ASSISTED TO THE BEDSIDE COMMODE TO VOID A VERY SMALL AMT. OF URINE. VSS, 02 SAT IS 100% ON 3L NC AND PATIENT IS SOB WITH ACTIVITY. 02 IS TURNED DOWN TO 2L. PATIENT IS ORIENTED TO ROOM AND CALL LIRIANO.
--- NOTE | 2022-09-01 07:32 | NUR ---
SHIFT SUMMARY: PATIENT IS REPORTING CHRONIC BACK PAIN AND WAS GIVE PERCOCET PO X2 WITH GOOD EFFECT. PATIENT DESATS WHILE TALKING OR WITH ANY ACTIVITY WHILE ON 3L. LUNGS ARE COURSE WITH EXPIRATORY WHEEZES THROUGH OUT. OCCASSIONAL NON PRODUCTIVE LOOSE COUGH.
[2022-09-01 13:32] LABS: Hematocrit 31.8 % (33.0-51.0); Hemoglobin 10.2 g/dL (11.5-16.0); Mean Corpuscular HGB 31.9 pg (26.0-34.0); Mean Corpuscular HGB Conc 32.1 g/dL (31.5-36.5); Mean Corpuscular Volume 99 fL (80-100); RDW Standard Deviation 50.9 fL (35.1-46.3); White Blood Cell Count 3.62 K/mm3 (4.00-11.30)
[2022-09-01 13:33] LABS: Mean Platelet Volume 10.6 fL (9.1-12.4)
[2022-09-01 13:40] LABS: Albumin, Blood 2.5 g/dL (3.4-5.0); Albumin/Globulin Ratio 0.6 (0.8-1.8); Bilirubin, Total 0.4 mg/dL (0.1-1.0); Bun/Creatinine Ratio 7.4 (12.0-20.0); Calcium, Blood 8.7 mg/dL (8.5-10.1); Creatinine, Blood 4.87 mg/dL (0.40-1.00); Globulin, Blood 4.1 g/dL (2.2-4.0); Potassium, Blood 5.5 mmol/L (3.5-5.5); Total Protein, Blood 6.6 g/dL (6.4-8.2)
[2022-09-01 14:09] LABS: BAND PERCENT MAN 4 % (0-8); BASOPHILS PERCENT MAN 0 % (0-2); EOSINOPHILS PERCENT MAN 0 % (0-6); LYMPHOCYTES ABSOLUTE MAN 0.32 K/mm3 (0.84-5.20); LYMPHOCYTES PERCENT MAN 9 % (21-46); MONOCYTES ABSOLUTE MAN 0.07 K/mm3 (0.16-1.47); MONOCYTES PERCENT MAN 2 % (4-13); NEUTROPHILS ABSOLUTE MAN 3.22 K/mm3 (1.96-9.15); SEG NEUTROPHILS PERCENT MAN 85 % (41-73); TOTAL CELLS COUNTED 100
[2022-09-01 14:11] LABS: Platelet Count 140 K/mm3 (150-400)
--- NOTE | 2022-09-01 16:14 | NUR ---
Shift Summary A/O, pleasant. 1p stand pivot to bsc. Dyspenic at minimal, on 3L O2 NC. Tele: Afib 52. Patient has been shannan throughout day hitting 30-40's without sustaining and averaging high 50's per tele. Patient does take metoprolol. Tele: afib 50's. Dr. Sun is aware of low heart rate. Received T.O. for hold parameters on metoprolol from Dr. Sun, HOLD FOR HR LESS THAN 75. Resting in bed, using bsc d/t dyspneic. Nonproductive cough, expiratory coarse wheezes throughout. Patient has breathing treatments per EMAR. Incentive spirometer nuvia in, education given with demonstration. Good appetite.
--- NOTE | 2022-09-02 07:37 | NUR ---
MANAGER TESTING SUMMARY: A&Ox4. PLEASANT AND COOPERATIVE WITH CARE. CALLS APPROPRIATELY AND COMMUNICATES NEEDS. MEDICATED LOW BACK PAIN x2. C/O COUGH AND GIVEN PRN ROBITUSSIN x2. LUNGS COARSE WITH WHEEZES WORSE ON RIGHT. RT GIVING BREATHING Tx. 3L/min VIA NC. TELE AFIB @ 60. LABS ORDERED BY DR BELLA TODAY. CONTINUES WITH IV STEROIDS. VSS. NO BM REPORTED. CONTINUES WITH INCENTIVE SPIROMETER. REPORT TO ONCOMING RN.
[2022-09-02 08:16] LABS: Hematocrit 30.7 % (33.0-51.0); Hemoglobin 10.1 g/dL (11.5-16.0); Mean Corpuscular HGB 32.7 pg (26.0-34.0); Mean Corpuscular HGB Conc 32.9 g/dL (31.5-36.5); Mean Corpuscular Volume 99 fL (80-100); Platelet Count 151 K/mm3 (150-400); RDW Standard Deviation 50.8 fL (35.1-46.3); Red Blood Cell Count 3.09 M/mm3 (3.80-5.20); White Blood Cell Count 9.31 K/mm3 (4.00-11.30)
[2022-09-02 08:40] LABS: Magnesium, Blood 2.2 mg/dL (1.6-2.4)
[2022-09-02 08:41] LABS: Albumin, Blood 2.6 g/dL (3.4-5.0); Albumin/Globulin Ratio 0.7 (0.8-1.8); Bilirubin, Total 0.4 mg/dL (0.1-1.0); Calcium, Blood 8.4 mg/dL (8.5-10.1); Creatinine, Blood 5.91 mg/dL (0.40-1.00); Globulin, Blood 3.9 g/dL (2.2-4.0); Potassium, Blood 5.8 mmol/L (3.5-5.5); Total Protein, Blood 6.5 g/dL (6.4-8.2)
--- NOTE | 2022-09-02 19:53 | NUR ---
SHIFT SUMMARY: PT A/O X 4 STANDBY ASSIST, PLEASANT AND COOPERATIVE WITH CARE. PT HAD DIALYSIS THIS MORNING AND TOLERATED WELL. PT CONTINUES TO HAVE HARSH COUGH WITH MINIMAL SPUTUM PRODUCTION. PT REPORTED HEADACHE THIS AFTERNOON AND PERCOCET GIVEN BUT INEFFECTIVE. GUAIFENISON GIVEN TO CONTROL COUGH IN HOPES IT WOULD EASE BELTRAN PAIN. PT LS COARS, NO WHEEZING AT THIS TIME.
--- NOTE | 2022-09-03 06:19 | NUR ---
ORE FEEDER SUMMARY: A&Ox4. PLEASANT AND COOPERATIVE WITH CARE. CALLS APPROPRIATELY AND ABLE TO COMMUNICATE NEEDS. MEDICATED x2 DURING SHIFT FOR C/O BACK PAIN AND x2 PRN ROBITUSSIN FOR COUGH. TELE AFIB @ 71bpm. MAINTAINING SPO2 >95% ON 3L/min VIA NC, UPPED BY RT AFTER AMBULATING TO BATHROOM AND DESATTING. NO ACUTE EVENTS T/O THE NIGHT. WILL REPORT TO ONCOMING RN.
[2022-09-03 13:00] LABS: Hematocrit 33.1 % (33.0-51.0); Hemoglobin 10.7 g/dL (11.5-16.0); Mean Corpuscular HGB 31.9 pg (26.0-34.0); Mean Corpuscular HGB Conc 32.3 g/dL (31.5-36.5); Mean Corpuscular Volume 99 fL (80-100); Mean Platelet Volume 9.9 fL (9.1-12.4); Platelet Count 159 K/mm3 (150-400); RDW Coefficient Variation 14.3 % (11.7-14.2); RDW Standard Deviation 51.7 fL (35.1-46.3); Red Blood Cell Count 3.35 M/mm3 (3.80-5.20); White Blood Cell Count 8.23 K/mm3 (4.00-11.30)
[2022-09-03 13:11] LABS: Albumin, Blood 2.6 g/dL (3.4-5.0); Anion Gap 9 mmol/L (6-16); Blood Urea Nitrogen 78 mg/dL (8-24); Bun/Creatinine Ratio 13.6 (12.0-20.0); CO2, Blood 29 mmol/L (21-32); Calcium, Blood 8.7 mg/dL (8.5-10.1); Chloride, Blood 95 mmol/L (98-108); Creatinine, Blood 5.72 mg/dL (0.40-1.00); Glomerular Filtration Rate 8 (60-); Glucose, Blood 134 mg/dL (70-99); Phosphorus, Blood 4.9 mg/dL (2.5-4.9); Potassium, Blood 5.4 mmol/L (3.5-5.5); Sodium, Blood 133 mmol/L (136-145)
--- NOTE | 2022-09-03 19:41 | NUR ---
SHIFT SUMMARY: PT A/O X 4 STANDBY ASSIST. PLEASANT AND COOPERATIVE. PT REPORTING FEELING BETTER THAN YESTERDAY. COUGH IMPROVING. DIALYSIS TODAY AND TOLERATED WELL. PAIN MANAGED WITH CURRENT REGIMEN.
--- NOTE | 2022-09-04 05:18 | NUR ---
RIBBER SUMMARY: A&Ox4. PLEASANT AND COOPERATIVE WITH CARE. CALLS APPROPRIATELY AND IS ABLE TO COMMUNICATE NEEDS EFFECTIVELY. ADMINISTERED PAIN MEDS AN COUGH MEDICINE x2. NO ACUTE CONCERNS T/O THE NIGHT. TELE AFIB W/ BBB @ 71bpm. STARTED TREATMENT FOR OTIC CECUM REMOVAL LAST NIGHT; NO ASE NOTED. IV RA PATENT ADN FLUSHES. O2 @ 3L/MIN VIA NC; DYSPNIC WITH EXERTION. LUNGS WHEEZE IN APICES; ADMINISTERED PRN ALBUTEROL Tx BY RT FOR THIS. VSS. WILL REPORT TO ONCOMING RN.
[2022-09-04 07:05] LABS: Hematocrit 31.1 % (33.0-51.0); Hemoglobin 10.2 g/dL (11.5-16.0); Mean Corpuscular HGB 32.6 pg (26.0-34.0); Mean Corpuscular HGB Conc 32.8 g/dL (31.5-36.5); Mean Corpuscular Volume 99 fL (80-100); Mean Platelet Volume 9.6 fL (9.1-12.4); Platelet Count 139 K/mm3 (150-400); RDW Coefficient Variation 14.4 % (11.7-14.2); RDW Standard Deviation 52.1 fL (35.1-46.3); Red Blood Cell Count 3.13 M/mm3 (3.80-5.20); White Blood Cell Count 6.62 K/mm3 (4.00-11.30)
[2022-09-04 07:30] LABS: Albumin, Blood 2.5 g/dL (3.4-5.0); Anion Gap 8 mmol/L (6-16); Blood Urea Nitrogen 60 mg/dL (8-24); Bun/Creatinine Ratio 13.8 (12.0-20.0); CO2, Blood 31 mmol/L (21-32); Calcium, Blood 9.3 mg/dL (8.5-10.1); Chloride, Blood 99 mmol/L (98-108); Creatinine, Blood 4.34 mg/dL (0.40-1.00); Glomerular Filtration Rate 11 (60-); Glucose, Blood 130 mg/dL (70-99); Phosphorus, Blood 4.9 mg/dL (2.5-4.9); Potassium, Blood 5.1 mmol/L (3.5-5.5); Sodium, Blood 138 mmol/L (136-145)
--- NOTE | 2022-09-04 16:58 | NUR ---
SHIFT SUMMARY PT HAS BEEN AO THIS SHIFT WHEN AWAKE. SHE HAS NO C/O PAIN/N/V. SHE HAS BEEN SLEEPING A MAJORITY OF THE SHIFT. HER TELE WAS DC'D TODAY. SHE IS SCHEDULED TO RECIEVE DIALYSIS TOMORROW, SHE DID NOT RECEIVE DIALYSIS THIS SHIFT. SHE HAS A PERSONAL MEDICATION LOCATED IN HER BOX THAT IS TO BE SENT HOME WITH HER UPON DISCHARGE.
--- NOTE | 2022-09-05 04:21 | NUR ---
SUMMARY PATIENT ASLEEP MOST OF SHIFT, NORMAL FOR PATIENT, TOOK MEDICATIONS WITHOUT DIFFICULTY, REMAINED FREE FROM HARM, RESTING IN BED AT THIS TIME.
[2022-09-05 09:57] LABS: Hematocrit 32.6 % (33.0-51.0); Hemoglobin 10.8 g/dL (11.5-16.0); Mean Corpuscular HGB 32.5 pg (26.0-34.0); Mean Corpuscular HGB Conc 33.1 g/dL (31.5-36.5); Mean Corpuscular Volume 98 fL (80-100); Mean Platelet Volume 9.5 fL (9.1-12.4); Platelet Count 148 K/mm3 (150-400); RDW Coefficient Variation 14.6 % (11.7-14.2); RDW Standard Deviation 52.6 fL (35.1-46.3); Red Blood Cell Count 3.32 M/mm3 (3.80-5.20); White Blood Cell Count 8.83 K/mm3 (4.00-11.30)
[2022-09-05 10:11] LABS: Albumin, Blood 2.6 g/dL (3.4-5.0); Anion Gap 12 mmol/L (6-16); Blood Urea Nitrogen 105 mg/dL (8-24); Bun/Creatinine Ratio 17.5 (12.0-20.0); CO2, Blood 29 mmol/L (21-32); Chloride, Blood 94 mmol/L (98-108); Glomerular Filtration Rate 7 (60-); Glucose, Blood 151 mg/dL (70-99); Phosphorus, Blood 4.7 mg/dL (2.5-4.9); Potassium, Blood 4.7 mmol/L (3.5-5.5); Sodium, Blood 135 mmol/L (136-145)
[2022-09-05] MEDS ORDERED: Q-Tussin100 MG/5 M PO (11:22)
[2022-09-05] MEDS ORDERED: GUAI600T33 PO (11:24)
[2022-09-05] MEDS ORDERED: MIRALAX17 GM PO (11:24)
[2022-09-05] MEDS ORDERED: PRED20 PO (11:26)
--- NOTE | 2022-09-05 18:24 | NUR ---
DISCHARGE NOTE PT DISCHARGED TODAY, TRANSPORTED TO THE ED EXIT VIA WHEELCHAIR. SHE IS BEING TAKEN TO HER HOME BY TAXI. HER DISCHARGE PAPERWORK WAS GIVEN TO HER AND EDUCATION PROVIDED. HER MEDICATIONS WERE FAXED TO THE PHARMACY OF HER CHOICE. INFORMED PT TO CALL PCP TO MAKE A FOLLOW-UP APPOINTMENT. IV WAS REMOVED SUCCESSFULLY.
== END 2022-09-05 17:58 | disposition home or self-care (01) | DRG 189 ==
LOC: ER 15:02 → MEDS 22:55
PROVIDERS: Internal Medicine; Student in an Organized Health Care Education/Training Program; ADMIT Internal Medicine
PROC: 5A1D70Z Performance of Urinary Filtration, Intermittent, Less than 6 Hours Per Day (ICD-10-PCS; principal; 2022-09-02)
DX: J96.21 Acute and chronic respiratory failure with hypoxia (principal); N18.6 End stage renal disease; J44.1 Chronic obstructive pulmonary disease with (acute) exacerbation; E87.1 Hypo-osmolality and hyponatremia; I12.0 Hypertensive chronic kidney disease with stage 5 chronic kidney disease or end stage renal disease; I48.91 Unspecified atrial fibrillation; D63.1 Anemia in chronic kidney disease; E87.5 Hyperkalemia; I08.1 Rheumatic disorders of both mitral and tricuspid valves; F17.210 Nicotine dependence, cigarettes, uncomplicated; E66.9 Obesity, unspecified; F32.A Depression, unspecified; Z20.822 Contact with and (suspected) exposure to COVID-19; Z88.5 Allergy status to narcotic agent; Z88.8 Allergy status to other drugs, medicaments and biological substances; Z99.2 Dependence on renal dialysis; Z79.01 Long term (current) use of anticoagulants; Z79.51 Long term (current) use of inhaled steroids; Z79.899 Other long term (current) drug therapy; Z79.891 Long term (current) use of opiate analgesic; Z79.2 Long term (current) use of antibiotics; Z87.01 Personal history of pneumonia (recurrent); Z90.49 Acquired absence of other specified parts of digestive tract; Z98.890 Other specified postprocedural states; Z68.36 Body mass index [BMI] 36.0-36.9, adult; Z95.828 Presence of other vascular implants and grafts
CPT/HCPCS: 0241U; 36415; 36600; 71046; 80053; 80069; 82803; 83735; 83880; 85025; 85027; 86317; 93005; 93010; 94640; 94664; 94760; 94761; 96372-59; 96374; 98960; 99285-25; A9270; J1644; J2930; J7512

== ENCOUNTER 2022-09-10 02:52 | Inpatient (IN) | payer MEDICARE, OTHER ==
[~2022-09-10] VITALS: Ht 170.2 cm; Wt 102.0 kg
[~2022-09-10 02:52] MED LIST changes: +GUAI600T33 PO; +MIRALAX17 GM PO; +Q-Tussin100 MG/5 M PO
[2022-09-10 04:04] LABS: BASOPHILS ABSOLUTE AUTO 0.04 K/mm3 (0.00-0.23); BASOPHILS PERCENT AUTO 0 % (0-2); EOSINOPHILS ABSOLUTE AUTO 0.01 K/mm3 (0.00-0.68); EOSINOPHILS PERCENT AUTO 0 % (0-6); Hemoglobin 11.7 g/dL (11.5-16.0); IMMATURE GRAN ABSOLUTE AUTO 0.22 K/mm3 (0.00-0.10); IMMATURE GRAN PERCENT AUTO 1 % (0-1); LYMPHOCYTES ABSOLUTE AUTO 0.59 K/mm3 (0.84-5.20); LYMPHOCYTES PERCENT AUTO 2 % (21-46); MONOCYTES ABSOLUTE AUTO 0.74 K/mm3 (0.16-1.47); MONOCYTES PERCENT AUTO 3 % (4-13); Mean Corpuscular HGB 32.7 pg (26.0-34.0); Mean Corpuscular HGB Conc 33.4 g/dL (31.5-36.5); Mean Corpuscular Volume 98 fL (80-100); Mean Platelet Volume 10.3 fL (9.1-12.4); NEUTROPHILS ABSOLUTE AUTO 25.04 K/mm3 (1.96-9.15); NEUTROPHILS PERCENT AUTO 94 % (41-73); Platelet Count 175 K/mm3 (150-400); RDW Coefficient Variation 14.6 % (11.7-14.2); RDW Standard Deviation 52.5 fL (35.1-46.3); Red Blood Cell Count 3.58 M/mm3 (3.80-5.20); White Blood Cell Count 26.64 K/mm3 (4.00-11.30)
[2022-09-10 04:29] LABS: Albumin, Blood 2.9 g/dL (3.4-5.0); Albumin/Globulin Ratio 0.8 (0.8-1.8); Bilirubin, Total 0.6 mg/dL (0.1-1.0); Bun/Creatinine Ratio 14.7 (12.0-20.0); Calcium, Blood 9.8 mg/dL (8.5-10.1); Creatinine, Blood 7.06 mg/dL (0.40-1.00); Globulin, Blood 3.8 g/dL (2.2-4.0); Total Protein, Blood 6.7 g/dL (6.4-8.2)
--- NOTE | 2022-09-10 09:45 | NUR ---
PT TO DIALYSIS @ THIS TIME
[2022-09-10] MEDS ORDERED: NALOXONE HCL4 MG (12:59)
--- NOTE | 2022-09-10 18:36 | NUR ---
SHIFT SUMMARY PT A&O4 APPEARS DROWSEY AND C/O PAIN T/O SHIFT. DR. AGEE ADVISED NO PAIN MEDS UNTIL BP IMPROVES. HYPOTENSION NOTED AND REPORTED TO 500 BOLUS OF NS ADMIN. HD THIS SHIFT-2L OFF PER PT. 4-5L HIGH FLOW NC, SATS >90. TELE IN PLACE. PT APPEARS PALE/DISORIENTATED/SHAKES AT TIMES. CALL LIGHT W/IN REACH.
--- NOTE | 2022-09-11 04:45 | NUR ---
SHIFT SUMMARY BP REMAINS SOFT THROUGHOUT SHIFT, SBP 90-110'S. ADMINISTERED MIDODRINE AT BEGINING OF SHIFT D/T PT REQUESTING PAIN MEDICATION WELL. REPORTING 10/10 BACK PAIN. BP REMAINS LOW BUT STABLE THROUGHOUT NIGHT. PT O2 NEEDS INCREASED, VENTI MASK, TITRATED BY RESPIRATORY, TO KEEP SPO2 ABOVE 88% D/T COPD HISTORY. UNABLE TO COLLECT UA D/T PT NOT NEEDING TO VOID, RARE VOID, HD PATIENT. ATTEMPTED TO USE BEDPAN BUT UNABLE. PT REMAINS IN BED. BG 90. AFIB ON TELE, RATE CONTROLED. PT FORGETFUL, NEEDS REMINDING TO USE CALL LIGHT. WILL CONTINUE TO MONITOR.
[2022-09-11 07:00] LABS: BASOPHILS ABSOLUTE AUTO 0.03 K/mm3 (0.00-0.23); BASOPHILS PERCENT AUTO 0 % (0-2); EOSINOPHILS ABSOLUTE AUTO 0.04 K/mm3 (0.00-0.68); EOSINOPHILS PERCENT AUTO 0 % (0-6); Hematocrit 32.2 % (33.0-51.0); Hemoglobin 10.1 g/dL (11.5-16.0); IMMATURE GRAN ABSOLUTE AUTO 0.08 K/mm3 (0.00-0.10); IMMATURE GRAN PERCENT AUTO 0 % (0-1); LYMPHOCYTES ABSOLUTE AUTO 0.55 K/mm3 (0.84-5.20); LYMPHOCYTES PERCENT AUTO 3 % (21-46); MONOCYTES ABSOLUTE AUTO 0.37 K/mm3 (0.16-1.47); MONOCYTES PERCENT AUTO 2 % (4-13); Mean Corpuscular HGB 31.4 pg (26.0-34.0); Mean Corpuscular HGB Conc 31.4 g/dL (31.5-36.5); Mean Corpuscular Volume 100 fL (80-100); Mean Platelet Volume 10.9 fL (9.1-12.4); NEUTROPHILS ABSOLUTE AUTO 18.36 K/mm3 (1.96-9.15); NEUTROPHILS PERCENT AUTO 95 % (41-73); Platelet Count 161 K/mm3 (150-400); RDW Coefficient Variation 14.7 % (11.7-14.2); RDW Standard Deviation 54.1 fL (35.1-46.3); Red Blood Cell Count 3.22 M/mm3 (3.80-5.20); White Blood Cell Count 19.43 K/mm3 (4.00-11.30)
[2022-09-11 07:27] LABS: Albumin, Blood 2.6 g/dL (3.4-5.0); Albumin/Globulin Ratio 0.8 (0.8-1.8); Bilirubin, Total 0.7 mg/dL (0.1-1.0); Bun/Creatinine Ratio 10.5 (12.0-20.0); Calcium, Blood 8.7 mg/dL (8.5-10.1); Creatinine, Blood 4.68 mg/dL (0.40-1.00); Globulin, Blood 3.3 g/dL (2.2-4.0); Total Protein, Blood 5.9 g/dL (6.4-8.2)
[2022-09-11 11:53] LABS: Base Excess Venous 5.1 mmol/L; Bicarbonate Venous 27.7 mmol/L (24.0-30.0); PCO2 Venous 47.5 mmHg (38-42); pH Blood Venous 7.41 (7.34-7.37)
--- NOTE | 2022-09-11 12:09 | NUR ---
[id number] TO FROM RM 336 REPORT RECEIVED FROM NIYAH CHARLES. PT WAS ON VENTURI MASK AT 16L OF O2 UPON TRANSFER, PER REPORT THEY ARE HAVING A HARD TIME GETTING SPO2 READING WITH THEIR EQUIPMENT, NASAL/EARPROBE WAS PLACED AND SATS WERE READING AT 80-83% WITH GOOD PLETH, AND PT'S BREATHING PATTERN WAS LABORED USES ACCESSORY/ABD MUSCLES LUNG SOUNDS COARSE WITH FRICTION RUB AND WHEEZES WORSE ON THE LEFT SIDE. BP SYSTOLIC SOFT 90-100, RR 24, HRR AFIB AT 110'S, AFEBRILE. DR AGEE WAS CALLED REGARDING PT'S STATUS ABG WAS ORDERED, BIPAP PER PROTOCOL, PT TO GET DIALYZE TODAY PUFF TX PER DIALYSIS NURSE WITH A GOAL OF 2.5-3L FLUID OUT BP TOLERATES. MIDODRINE 10MG WAS GIVEN PRIOR TO DIALYSIS TO HELP MAINTAINING BP DURING THE TX. PT NOW ON THE BIPAP ON 16L OF O2 BLEED PT NOW SATTING AT 90-91%. DIALYSIS ONGOING AT THIS TIME, ALBUMIN ORDERED. DR AGEE ALSO CAME BY TO REASSESS PT. PALLITIVE CARE ORDER PLACED FOR POLST REVIEW PER PT'S WISHES. PT CURRENTLY RESTING IN BED RIGHT NOW, PERCOCET 7.5 MG WAS GIVEN PER PT'S REQUEST PT STATED SHE WANTS IT REGARDLESS OF WHAT TO HAPPEN. PT REPORTED CHEST PAIN 10/10 PRVIDER MADE AWARE, MOSLTY DUE TO PNA. PT ALERT AND ORIENTED X3, ABLE TO COMMUNICATE NEEDS, WILL CONTINUE TO MONITOR
--- NOTE | 2022-09-11 18:18 | NUR ---
PT SUMMARY: SEE TRANFER NOTES. UPDATE: PT BREATHING MUCH BETTER NOW WITH BIPAP ON, PT HAS BEEN ON BIPAP SINCE AFTER LUNCH TIME, PT REFUSED DINNER DRINKING NEPRO DURING BIPAP BREAKS. PT PSOT DIALYSIS TODAY HAD 2500MLS FLUID OUT PT ABLE TO TOLERATE SBP REMAINS SOFT 87-115'S MAP KEPT ABOVE 65, MIDODRINE DOSE WAS GIVEN PRIOR TO DIALYSIS AND BEFORE THE END OF THE SHIFT LAST BP WAS 106/65 MAP(77). SATS ABOVE 90% BIPAP SETTINGS 20/10 WITH 10L OF O2 BLEED. PT REPORTED CHEST PAIN WAS RELIEVED WITHT HE PAIN MEDICINE THAT WAS GIVEN UPON TRANSFER HAVENT ASKED SINCE THEN, PT LOOKS MORE COMFORTABLE WITH BIPAP ON. FISTULA ON LEFT UPPER ARM WITH PRESSURE DRESSING INTACT POST DIALYSIS, POSITIVE BRUIT AND THRILL. PT RESTING IN BED, WITH CALL LIGTHS IN REACH CALLS APPROPRIATELY AND ABLE TO MAKE NEEDS KNOWN, WILL REPORT TO ONCOMING SHIFT
[2022-09-12 04:16] LABS: BASOPHILS ABSOLUTE AUTO 0.03 K/mm3 (0.00-0.23); BASOPHILS PERCENT AUTO 0 % (0-2); EOSINOPHILS PERCENT AUTO 0 % (0-6); Hematocrit 29.8 % (33.0-51.0); IMMATURE GRAN ABSOLUTE AUTO 0.17 K/mm3 (0.00-0.10); IMMATURE GRAN PERCENT AUTO 1 % (0-1); LYMPHOCYTES ABSOLUTE AUTO 0.32 K/mm3 (0.84-5.20); LYMPHOCYTES PERCENT AUTO 2 % (21-46); MONOCYTES ABSOLUTE AUTO 0.19 K/mm3 (0.16-1.47); MONOCYTES PERCENT AUTO 1 % (4-13); Mean Corpuscular HGB 32.6 pg (26.0-34.0); Mean Corpuscular HGB Conc 33.6 g/dL (31.5-36.5); Mean Corpuscular Volume 97 fL (80-100); Mean Platelet Volume 11.5 fL (9.1-12.4); NEUTROPHILS ABSOLUTE AUTO 18.59 K/mm3 (1.96-9.15); NEUTROPHILS PERCENT AUTO 96 % (41-73); Platelet Count 151 K/mm3 (150-400); RDW Coefficient Variation 14.6 % (11.7-14.2); RDW Standard Deviation 51.8 fL (35.1-46.3); Red Blood Cell Count 3.07 M/mm3 (3.80-5.20)
[2022-09-12 04:33] LABS: Albumin, Blood 2.6 g/dL (3.4-5.0); Albumin/Globulin Ratio 0.7 (0.8-1.8); Bilirubin, Total 0.5 mg/dL (0.1-1.0); Bun/Creatinine Ratio 12.6 (12.0-20.0); Calcium, Blood 9.6 mg/dL (8.5-10.1); Creatinine, Blood 6.13 mg/dL (0.40-1.00); Globulin, Blood 3.8 g/dL (2.2-4.0); Potassium, Blood 5.5 mmol/L (3.5-5.5); Total Protein, Blood 6.4 g/dL (6.4-8.2)
[2022-09-12 08:30] LABS: Source, Urine Voided
[2022-09-12 08:36] LABS: Bilirubin, Urine Neg (Neg); Blood, Urine 1+ (Neg); Glucose Qualitative, Urine Neg (Neg); Ketones, Urine Neg (Neg); Leukocyte Esterase, Urine Neg (Neg); Nitrite, Urine Neg (Neg); Protein, Urine 2+ (Neg); Urobilinogen, Urine NORM (Normal)
[2022-09-12 08:53] LABS: Appearance, Urine Hazy (Clear); Color, Urine Yellow (P-Yellow); Red Blood Cells, Urine 0-2 /hpf (0-2); Squamous Epithelial Cells Many /hpf (Few); White Blood Cells, Urine Not Seen /hpf (0-5)
[2022-09-12 08:54] LABS: Bacteria Not Seen /hpf
--- NOTE | 2022-09-12 15:00 | NUR ---
ASSUMED PT CARE SHADI CARMICHAEL RN AT THIS TIME
--- NOTE | 2022-09-12 16:50 | NUR ---
PT RESTING WELL IN BED, REPORTS INTERMITTENT RT SIDED CP THAT IS WORSE WITH AMBULATION. VSS. ALERT ANSWERING QUESTIONS APPROPRIATELY. PT HAS BEEN TO DIALYSIS TODAY, 2L WERE REMOVED DURING DIALYSIS. NONPITTING EDEMA NOTED TO BLE. PT AMBULATED TO BATHROOM WITH PCT WHICH WAS TOLERATED WELL. NADN. 10L O2 VIA NC WITH SPO2 @ 94%. PT DNEIES ANY NEEDS AT THIS TIME
[2022-09-13 04:14] LABS: BASOPHILS ABSOLUTE AUTO 0.03 K/mm3 (0.00-0.23); BASOPHILS PERCENT AUTO 0 % (0-2); EOSINOPHILS PERCENT AUTO 0 % (0-6); IMMATURE GRAN ABSOLUTE AUTO 0.19 K/mm3 (0.00-0.10); IMMATURE GRAN PERCENT AUTO 1 % (0-1); LYMPHOCYTES ABSOLUTE AUTO 0.35 K/mm3 (0.84-5.20); LYMPHOCYTES PERCENT AUTO 2 % (21-46); MONOCYTES ABSOLUTE AUTO 0.38 K/mm3 (0.16-1.47); MONOCYTES PERCENT AUTO 2 % (4-13); Mean Corpuscular HGB 32.4 pg (26.0-34.0); Mean Corpuscular HGB Conc 33.3 g/dL (31.5-36.5); Mean Corpuscular Volume 97 fL (80-100); Mean Platelet Volume 11.5 fL (9.1-12.4); NEUTROPHILS ABSOLUTE AUTO 14.97 K/mm3 (1.96-9.15); NEUTROPHILS PERCENT AUTO 94 % (41-73); Platelet Count 183 K/mm3 (150-400); RDW Coefficient Variation 14.7 % (11.7-14.2); RDW Standard Deviation 52.2 fL (35.1-46.3); Red Blood Cell Count 3.09 M/mm3 (3.80-5.20); White Blood Cell Count 15.92 K/mm3 (4.00-11.30)
[2022-09-13 04:42] LABS: Albumin, Blood 2.4 g/dL (3.4-5.0); Albumin/Globulin Ratio 0.6 (0.8-1.8); Bilirubin, Total 0.5 mg/dL (0.1-1.0); Bun/Creatinine Ratio 15.1 (12.0-20.0); Calcium, Blood 8.9 mg/dL (8.5-10.1); Creatinine, Blood 3.65 mg/dL (0.40-1.00); Globulin, Blood 3.9 g/dL (2.2-4.0); Potassium, Blood 4.6 mmol/L (3.5-5.5); Total Protein, Blood 6.3 g/dL (6.4-8.2)
--- NOTE | 2022-09-13 05:54 | NUR ---
PT AWAKE MOST OF THE NIGHT, TREATED FOR PAIN X'S 2 AND NAUSEA X'S 1, VSS
--- NOTE | 2022-09-13 17:53 | NUR ---
THIS RN ASSUMED PT CARE AT 0930 THIS AM FROM NILO CHARLES. PT RESTING WELL IN BED, CALM COOPERATIVE, FLAT AFFECT NOTED. PT REPORTS NO CHANGE IN WORK OF BREATHING DURING THIS SHIFT. HER COUGH APPEARS TO BE MORE PRODUCTIVE AND MORE STRONG. NO CHANGE IN OXYGEN NEEDS DURING THIS SHIFT, SHE REMAINS ON 10L O2 VIA NASAL CANNULA. PT ANXIOUS AND SADDENED THAT SON DID NOT VISIT TODAY HE HAS TOLD HER THAT HE WOULD. OTHERWISE THERE ARE NO ACUTE CAHNGES TO DISCUSS THIS SHIFT. VSS. MESA
--- NOTE | 2022-09-14 06:23 | NUR ---
SHIFT SUMMARY PATIENT ALERT AND ORIENTED. VSS, PATIENT ON 9-10L NC WITH O2 SAT LOW TO MID 90s. PATIENT FREQUENTLY REMINDED TO BREATHE IN/OUT THROUGH NOSE AND NOT THROUGH MOUTH. DENIES PAIN THIS SHIFT. PATIENT URINATED x1, RECIEVES HEMODIALYSIS. NO OTHER SIGNIFICANT CHANGES THIS SHIFT, WILL REPORT TO DAY SHIFT RN.
[2022-09-14 08:13] LABS: BASOPHILS ABSOLUTE AUTO 0.02 K/mm3 (0.00-0.23); BASOPHILS PERCENT AUTO 0 % (0-2); EOSINOPHILS PERCENT AUTO 0 % (0-6); Hematocrit 29.9 % (33.0-51.0); IMMATURE GRAN ABSOLUTE AUTO 0.13 K/mm3 (0.00-0.10); IMMATURE GRAN PERCENT AUTO 1 % (0-1); LYMPHOCYTES ABSOLUTE AUTO 0.34 K/mm3 (0.84-5.20); LYMPHOCYTES PERCENT AUTO 3 % (21-46); MONOCYTES ABSOLUTE AUTO 0.43 K/mm3 (0.16-1.47); MONOCYTES PERCENT AUTO 3 % (4-13); Mean Corpuscular HGB 32.6 pg (26.0-34.0); Mean Corpuscular HGB Conc 33.4 g/dL (31.5-36.5); Mean Corpuscular Volume 97 fL (80-100); Mean Platelet Volume 10.9 fL (9.1-12.4); NEUTROPHILS ABSOLUTE AUTO 12.03 K/mm3 (1.96-9.15); NEUTROPHILS PERCENT AUTO 93 % (41-73); Platelet Count 142 K/mm3 (150-400); RDW Coefficient Variation 14.7 % (11.7-14.2); RDW Standard Deviation 52.9 fL (35.1-46.3); Red Blood Cell Count 3.07 M/mm3 (3.80-5.20); White Blood Cell Count 12.95 K/mm3 (4.00-11.30)
[2022-09-14 08:39] LABS: Albumin, Blood 2.2 g/dL (3.4-5.0); Albumin/Globulin Ratio 0.6 (0.8-1.8); Bilirubin, Total 0.5 mg/dL (0.1-1.0); Bun/Creatinine Ratio 18.5 (12.0-20.0); Calcium, Blood 8.9 mg/dL (8.5-10.1); Creatinine, Blood 5.08 mg/dL (0.40-1.00); Globulin, Blood 3.7 g/dL (2.2-4.0); Potassium, Blood 5.7 mmol/L (3.5-5.5); Total Protein, Blood 5.9 g/dL (6.4-8.2)
[2022-09-14] MEDS ORDERED: SEVEC800 PO (17:02)
--- NOTE | 2022-09-14 18:45 | NUR ---
PT SUMMARY: PT HAD DIALYSIS TODAY HAD 2.6L FLUID OUT, NO ISSUES WITH BLOOD PRESSURE TODAY SBP RANGING 110-130'S, HRR AFIB MOSTLY 60-70'S, INCREASES WHEN AMBULATING 120'S, SATS KEPT ABOVE 90% WAS ABLE TO TITRATE TO 6L, AFEBRILE. PT HAS BEEN EATING ON THE SIDE OF THE BED FOR MEALS AMBULATING TO THE [facility] ASSISTED VIA WALKER. DENIES ANY CHEST PAIN AND PRESSURE, MEDICATED TWICE FOR LOWER BACK PAIN AND WAS EFFECTIVE. SON CAME IN TO VISIT. HAD 100 MLS URINE OUT FOR THE SHIFT. NO OTHER ISSUES ENCOUNTRED. CALLS APPROPRIATELY. FORGETFUL AT TIMES, ABLE TO MAKE NEEDS KNOWN, WILL REPORT TO ONCOMING SHIFT
[2022-09-15 04:51] LABS: BASOPHILS ABSOLUTE AUTO 0.02 K/mm3 (0.00-0.23); BASOPHILS PERCENT AUTO 0 % (0-2); EOSINOPHILS PERCENT AUTO 0 % (0-6); Hematocrit 28.7 % (33.0-51.0); Hemoglobin 9.5 g/dL (11.5-16.0); IMMATURE GRAN PERCENT AUTO 2 % (0-1); LYMPHOCYTES ABSOLUTE AUTO 0.44 K/mm3 (0.84-5.20); LYMPHOCYTES PERCENT AUTO 4 % (21-46); MONOCYTES ABSOLUTE AUTO 0.48 K/mm3 (0.16-1.47); MONOCYTES PERCENT AUTO 4 % (4-13); Mean Corpuscular HGB 32.3 pg (26.0-34.0); Mean Corpuscular HGB Conc 33.1 g/dL (31.5-36.5); Mean Corpuscular Volume 98 fL (80-100); Mean Platelet Volume 11.1 fL (9.1-12.4); NEUTROPHILS ABSOLUTE AUTO 10.37 K/mm3 (1.96-9.15); NEUTROPHILS PERCENT AUTO 90 % (41-73); Platelet Count 127 K/mm3 (150-400); RDW Coefficient Variation 14.6 % (11.7-14.2); RDW Standard Deviation 52.7 fL (35.1-46.3); Red Blood Cell Count 2.94 M/mm3 (3.80-5.20); White Blood Cell Count 11.51 K/mm3 (4.00-11.30)
[2022-09-15 05:24] LABS: Albumin, Blood 2.5 g/dL (3.4-5.0); Albumin/Globulin Ratio 0.8 (0.8-1.8); Bilirubin, Total 0.5 mg/dL (0.1-1.0); Bun/Creatinine Ratio 18.6 (12.0-20.0); Calcium, Blood 8.7 mg/dL (8.5-10.1); Creatinine, Blood 3.97 mg/dL (0.40-1.00); Globulin, Blood 3.3 g/dL (2.2-4.0); Potassium, Blood 5.3 mmol/L (3.5-5.5); Total Protein, Blood 5.8 g/dL (6.4-8.2)
--- NOTE | 2022-09-15 06:18 | NUR ---
SHIFT SUMMARY: NEURO: PATIENT SLEEPING BETWEEN CARE. ALERT AND ORIENTED X 4. GROGGY WHEN AWAKENED BUT PLEASANT AND COOPERATIVE WITH CARE. FOLLOWS ALL COMMANDS. ABLE TO SIT UP WITH STRENGTH. CARDIAC: AFIB ON MONITOR IN 50'S-70'S. BP STABLE. AFEBRILE. NO COMPLAINT OF CHEST PAIN. RESP: 8L HFNC. ONE NEB TREATMENT GIVEN. LUNGS CLEAR AND DIMINISHED. COMPLIANT OF SOB WITH EXERTION. GI/: OLIGURIC, NO UOP THIS SHIFT. NO BM THIS SHIFT. SKIN: PALE AND DRY. INTACT. OTHER: EJ REMOVED, POWERGLIDE INSERTED THIS SHIFT.
[2022-09-15] MEDS ORDERED: VISBIOME 112.51 EACH PO (12:41)
[2022-09-15] MEDS ORDERED: CEFP200 PO (12:41)
--- NOTE | 2022-09-15 15:08 | NUR ---
PT DISCHARGE TO HOME TODAY WITH DISCHARGE ORDERS. DISCLOSED WITH THE PT DISCHARGE INSTRUCTIONS AND NEW MEDICATIONS. PT TO FF-UP WITH PCP WITHIN ONE WEEK AND RESUME DIALYSIS SCHEDULE. PRESCRIPTION SENT TO [facility] IN [place]. HOME O2 EVAL DONE PT PASSED BASELINE O2 AT 2L CONTINUOUS. ALL BELONGINGS SENT WITH THE PT. SON WAS ABLE TO PROVIDE TRANSPORTATION, PT IS BEING DISCHARGE BACK TO [facility]. SON ALSO BROUGHT IN HOME PORTABLE O2. PT WAS ACCOMPANIED BY WHEELCHAIR FOR TRANSPORT. NO ISSUES PRIOR TO DISCHARGE.
== END 2022-09-15 14:16 | disposition home or self-care (01) | DRG 871 ==
LOC: ER 02:52 → MEDS 05:43 → PCU 05:43 → MEDS 07:47 → PCU 09-11 10:59
PROVIDERS: Emergency Medicine; Family Medicine; Internal Medicine; Student in an Organized Health Care Education/Training Program; ADMIT Internal Medicine
PROC: 3E03329 Introduction of Other Anti-infective into Peripheral Vein, Percutaneous Approach (ICD-10-PCS; principal; 2022-09-10)
PROC: 5A1D70Z Performance of Urinary Filtration, Intermittent, Less than 6 Hours Per Day (ICD-10-PCS; 2022-09-10)
PROC: 5A0935A Assistance with Respiratory Ventilation, Less than 24 Consecutive Hours, High Flow/Velocity Cannula (ICD-10-PCS; 2022-09-10)
PROC: 5A09357 Assistance with Respiratory Ventilation, Less than 24 Consecutive Hours, Continuous Positive Airway Pressure (ICD-10-PCS; 2022-09-12)
DX: A41.9 Sepsis, unspecified organism (principal); J18.9 Pneumonia, unspecified organism; J96.21 Acute and chronic respiratory failure with hypoxia; N18.6 End stage renal disease; J44.0 Chronic obstructive pulmonary disease with (acute) lower respiratory infection; E87.1 Hypo-osmolality and hyponatremia; I12.0 Hypertensive chronic kidney disease with stage 5 chronic kidney disease or end stage renal disease; J44.1 Chronic obstructive pulmonary disease with (acute) exacerbation; I48.91 Unspecified atrial fibrillation; F17.210 Nicotine dependence, cigarettes, uncomplicated; D63.1 Anemia in chronic kidney disease; E87.5 Hyperkalemia; R10.9 Unspecified abdominal pain; Z99.2 Dependence on renal dialysis; Z71.6 Tobacco abuse counseling; Z88.8 Allergy status to other drugs, medicaments and biological substances; Z88.5 Allergy status to narcotic agent; Z79.891 Long term (current) use of opiate analgesic; Z79.01 Long term (current) use of anticoagulants; Z79.51 Long term (current) use of inhaled steroids; Z79.899 Other long term (current) drug therapy; Z79.52 Long term (current) use of systemic steroids; Z90.49 Acquired absence of other specified parts of digestive tract; Z95.828 Presence of other vascular implants and grafts
CPT/HCPCS: 36415; 71045; 74176; 80053; 81001; 82803; 82947; 83605; 83690; 83880; 84484; 85025; 87040; 93005; 93010; 94640; 94660; 94664; 94761; 94762; 96365; 96375; 99285-25; A9270; C1751; J0456; J0696; J2270; J2405; J2930; J7030; J7050; P9047; Q5106

== ENCOUNTER 2022-09-16 11:46 | Inpatient (IN) | payer MEDICARE, OTHER ==
[~2022-09-16] VITALS: Ht 170.2 cm; Wt 97.9 kg
[~2022-09-16 11:46] MED LIST changes: +NALOXONE HCL4 MG
[2022-09-16 13:37] LABS: BASOPHILS ABSOLUTE AUTO 0.02 K/mm3 (0.00-0.23); BASOPHILS PERCENT AUTO 0 % (0-2); EOSINOPHILS ABSOLUTE AUTO 0.02 K/mm3 (0.00-0.68); EOSINOPHILS PERCENT AUTO 0 % (0-6); Hematocrit 35.4 % (33.0-51.0); Hemoglobin 11.4 g/dL (11.5-16.0); IMMATURE GRAN PERCENT AUTO 4 % (0-1); LYMPHOCYTES ABSOLUTE AUTO 0.87 K/mm3 (0.84-5.20); LYMPHOCYTES PERCENT AUTO 5 % (21-46); MONOCYTES ABSOLUTE AUTO 0.76 K/mm3 (0.16-1.47); MONOCYTES PERCENT AUTO 5 % (4-13); Mean Corpuscular HGB 31.4 pg (26.0-34.0); Mean Corpuscular HGB Conc 32.2 g/dL (31.5-36.5); Mean Corpuscular Volume 98 fL (80-100); Mean Platelet Volume 10.8 fL (9.1-12.4); NEUTROPHILS ABSOLUTE AUTO 14.56 K/mm3 (1.96-9.15); NEUTROPHILS PERCENT AUTO 87 % (41-73); Platelet Count 154 K/mm3 (150-400); RDW Coefficient Variation 14.5 % (11.7-14.2); Red Blood Cell Count 3.63 M/mm3 (3.80-5.20); White Blood Cell Count 16.83 K/mm3 (4.00-11.30)
[2022-09-16 14:05] LABS: Albumin, Blood 2.8 g/dL (3.4-5.0); Albumin/Globulin Ratio 0.8 (0.8-1.8); Bilirubin, Total 0.9 mg/dL (0.1-1.0); Bun/Creatinine Ratio 20.3 (12.0-20.0); Calcium, Blood 9.7 mg/dL (8.5-10.1); Creatinine, Blood 5.75 mg/dL (0.40-1.00); Globulin, Blood 3.7 g/dL (2.2-4.0); Potassium, Blood 5.4 mmol/L (3.5-5.5); Total Protein, Blood 6.5 g/dL (6.4-8.2)
[2022-09-16 14:32] LABS: Source, Urine Straight Cath
[2022-09-16 14:55] LABS: Bilirubin, Urine Neg (Neg); Blood, Urine 1+ (Neg); Glucose Qualitative, Urine Neg (Neg); Ketones, Urine Neg (Neg); Leukocyte Esterase, Urine Neg (Neg); Nitrite, Urine Neg (Neg); Protein, Urine 2+ (Neg); Urobilinogen, Urine NORM (Normal)
[2022-09-16 15:15] LABS: Influenza A, PCR NEGATIVE (NEGATIVE); Influenza B, PCR NEGATIVE (NEGATIVE); Resp Syncytial Virus, PCR NEGATIVE (NEGATIVE); SARS-Cov-2 (COVID-19) PCR, MMC NEGATIVE (NEGATIVE)
[2022-09-16 15:18] LABS: Appearance, Urine Hazy (Clear); Color, Urine Yellow (P-Yellow)
[2022-09-16 15:19] LABS: Bacteria Mod /hpf; Squamous Epithelial Cells Few /hpf (Few)
--- NOTE | 2022-09-16 20:45 | NUR ---
ASSUMPTION OF CARE/ ASSESSMENT: ASSUMED CARE OF PT AT 1900. PT IS ASLEEP IN BED AND DROWSY AT THIS TIME. PT IS RESPONDING TO VERBAL STIMULI AFTER MULTIPLE TIMES CALLING OUT PT'S NAME AND LIGHTLY TAPPING PT'S SHOULDER; PT WILL OPEN EYES BUT REQUIRE COACHING TO KEEP THEM OPEN. AT THIS TIME, PT WAS ABLE TO SOFTLY MUTTER HER NAME, , AND WHERE SHE WAS AT (LOCATION AND CITY). PT RIGHT BACK TO SLEEP IMMEDDIATELY AFTER STIMULI. PT WAS MEDICATED WITH 0.5 ATIVAN IN ED PRIOR TO ADMISSION TO PCU UNIT AND PRIOR TO THIS RN COMING ONTO SHIFT. PT NC @ 4L, BASELINE O2 OF 2LPM, AND SPO2 94<. PT ON TELEMETRY WITH AFIB RYTHYM AND HR IN THE 60-70'S, SBP 110-120'S. PT IN DEPENDS AND INCONTINENT AT THIS TIME. PT DIALYSIS PT AND HAS A FISTULA TO THE ALONDRA; BRUIT FELT AND THRILL ASCULTATED. PT HAS WARM UPPER EXTREMITIES WITH CAP REFIL < 3 SECONDS, BUT COOL BLE WITH CAP REFIL > 3 SECONDS. PT AFEBRILE AT THIS TIME. PPP X 3. PT CAME FROM THE [facility] AND EMPLOYEES STATE THAT PT HAS HAD A DECLINE IN CAPABILITIES TO CARE FOR HERSELF LEADING UP TO THIS HOSPITILIZATION. PT HAS A WALKER WITH HER UPON ADMISSION. PG IN [place]. BED LOWERED, CALL LIGHT IN REACH, WILL CONTINUE TO MONITOR.
--- NOTE | 2022-09-16 23:30 | NUR ---
PT UPDATE: PT IS MORE ALERT AND ORIENTED AT THIS TIME. PT MORE EASILY AROUSABLE AND IS ABLE TO PARTICIPATE IN CONVERSATION MORE EASILY AND CLEARLY. PT ANSWER QUESTIONS AND FOLLOWING COMMANDS APPROPRIATELY. AT THIS TIME, DEPENDS CHANGED AND SMALL BM NOTED. PT HAS SOME SKIN MARKINGS ON BUTTOM THAT WERE PHOTOGRAPHED AND PLACED IN THE CHART. PT GIVEN WATER AND TOLERATED WELL. BED LOWERED, CALL LIGHT IN REACH, WILL CONTINUE TO MONITOR.
[2022-09-17 04:54] LABS: BASOPHILS ABSOLUTE AUTO 0.01 K/mm3 (0.00-0.23); BASOPHILS PERCENT AUTO 0 % (0-2); EOSINOPHILS PERCENT AUTO 0 % (0-6); Hematocrit 27.5 % (33.0-51.0); Hemoglobin 9.4 g/dL (11.5-16.0); IMMATURE GRAN ABSOLUTE AUTO 0.32 K/mm3 (0.00-0.10); IMMATURE GRAN PERCENT AUTO 3 % (0-1); LYMPHOCYTES ABSOLUTE AUTO 0.53 K/mm3 (0.84-5.20); LYMPHOCYTES PERCENT AUTO 5 % (21-46); MONOCYTES ABSOLUTE AUTO 0.28 K/mm3 (0.16-1.47); MONOCYTES PERCENT AUTO 3 % (4-13); Mean Corpuscular HGB 32.2 pg (26.0-34.0); Mean Corpuscular HGB Conc 34.2 g/dL (31.5-36.5); Mean Corpuscular Volume 94 fL (80-100); NEUTROPHILS ABSOLUTE AUTO 10.08 K/mm3 (1.96-9.15); NEUTROPHILS PERCENT AUTO 90 % (41-73); Platelet Count 114 K/mm3 (150-400); RDW Coefficient Variation 14.4 % (11.7-14.2); RDW Standard Deviation 49.5 fL (35.1-46.3); Red Blood Cell Count 2.92 M/mm3 (3.80-5.20); White Blood Cell Count 11.22 K/mm3 (4.00-11.30)
[2022-09-17 05:28] LABS: Albumin, Blood 2.3 g/dL (3.4-5.0); Albumin/Globulin Ratio 0.7 (0.8-1.8); Bilirubin, Total 0.7 mg/dL (0.1-1.0); Bun/Creatinine Ratio 22.3 (12.0-20.0); Calcium, Blood 9.4 mg/dL (8.5-10.1); Creatinine, Blood 6.4 mg/dL (0.40-1.00); Globulin, Blood 3.2 g/dL (2.2-4.0); Potassium, Blood 6.5 mmol/L (3.5-5.5); Total Protein, Blood 5.5 g/dL (6.4-8.2)
--- NOTE | 2022-09-17 06:14 | NUR ---
SHIFT SUMMARY: PT SLEPT ON AND OFF THROUGHOUT THE SHIFT. NO ACUTE CHANGES. NEURO STATUS IMPROVED OVER THE COURSE OF THE SHIFT. PT ABLE TO PARTICIPATE IN TURNS AND WAS ABLE TO REPOSITION INDEPENDENTLY. PT HAS A CRITICAL POTASSIUM @ 6.5, POWER REACTOR SUPERVISOR AWARE. PT IS A DIALYSIS PT AND DR VILLA HAS BEEN CONSULTED. PT USUALLY RECIEVES DIALYSIS ON /; WILL PASS ON THIS INFORMATION TO ONCOMING RN. VSS THROUGHOUT THE NIGHT; PT DID HAVE A SHORT INSTANCE OF BRADYCARDIA DOWN TO 49 BUT DID NOT SUSTAIN RATE. HR 60-70'S, SBP 120'S, SPO2 94<. BED LOWERED, CALL LIGHT IN REACH, WILL CONTINUE TO MONITOR UNTIL ONCOMING RN ARRIVES.
[2022-09-17 18:16] LABS: Base Excess Venous 3.2 mmol/L; Bicarbonate Venous 26.6 mmol/L (24.0-30.0); PCO2 Venous 50.3 mmHg (38-42); pH Blood Venous 7.36 (7.34-7.37)
--- NOTE | 2022-09-17 18:25 | NUR ---
SHIFT SUMMARY PT ALERT, ORIENTED x2 THIS AM, INCREASED CONFUSION NOTED POST DIALYSIS, NOTIFIED MD, VBG RESULTS, NOTIFIED MD OF RESULTS. PT REPORTS PAIN PAIN, MEDICATED PER EMAR WITH MINIMLA RESULTS. TELE AFIB 60-70'S BP STABLE. SPO2 >90% ON 3-4L O2 VIA NC, ATTEMPTED TO TITRATED TO BASELINE, PT DESATURATED. PT UP WITH 1 PERSON ASSIST. PT TO DIALYSIS THIS AM. OTHER VSS. NO OTHER ACUTE CHANGES NOTED.
[2022-09-18 04:47] LABS: BASOPHILS ABSOLUTE AUTO 0.01 K/mm3 (0.00-0.23); BASOPHILS PERCENT AUTO 0 % (0-2); EOSINOPHILS ABSOLUTE AUTO 0.03 K/mm3 (0.00-0.68); EOSINOPHILS PERCENT AUTO 0 % (0-6); Hematocrit 25.8 % (33.0-51.0); Hemoglobin 8.7 g/dL (11.5-16.0); IMMATURE GRAN ABSOLUTE AUTO 0.22 K/mm3 (0.00-0.10); IMMATURE GRAN PERCENT AUTO 2 % (0-1); LYMPHOCYTES ABSOLUTE AUTO 0.56 K/mm3 (0.84-5.20); LYMPHOCYTES PERCENT AUTO 5 % (21-46); MONOCYTES ABSOLUTE AUTO 0.43 K/mm3 (0.16-1.47); MONOCYTES PERCENT AUTO 4 % (4-13); Mean Corpuscular HGB 32.3 pg (26.0-34.0); Mean Corpuscular HGB Conc 33.7 g/dL (31.5-36.5); Mean Corpuscular Volume 96 fL (80-100); Mean Platelet Volume 10.4 fL (9.1-12.4); NEUTROPHILS ABSOLUTE AUTO 9.37 K/mm3 (1.96-9.15); NEUTROPHILS PERCENT AUTO 88 % (41-73); Platelet Count 112 K/mm3 (150-400); RDW Coefficient Variation 14.6 % (11.7-14.2); RDW Standard Deviation 50.7 fL (35.1-46.3); Red Blood Cell Count 2.69 M/mm3 (3.80-5.20); White Blood Cell Count 10.62 K/mm3 (4.00-11.30)
[2022-09-18 05:24] LABS: Albumin, Blood 2.5 g/dL (3.4-5.0); Albumin/Globulin Ratio 0.8 (0.8-1.8); Bilirubin, Total 0.8 mg/dL (0.1-1.0); Bun/Creatinine Ratio 16.7 (12.0-20.0); Creatinine, Blood 3.54 mg/dL (0.40-1.00); Magnesium, Blood 2.3 mg/dL (1.6-2.4); Phosphorus, Blood 4.4 mg/dL (2.5-4.9); Potassium, Blood 4.6 mmol/L (3.5-5.5); Total Protein, Blood 5.5 g/dL (6.4-8.2)
--- NOTE | 2022-09-18 05:53 | NUR ---
SHIFT SUMMARY ASSUMED CARE OF PT AT 1900. PT IS A/OX3-4 WITH TIMES OF CONFUSION. LUNG SOUNDS DIMINISHED, PT REMAINED ON BASLINE O2 OF 2L. PT IS A 2P ASSIST TO BSC. PT C/O PAIN IN HER LEGS, MEDICATED PER EMAR. FISTULA IN L ARM HAD TRILL/BRUT. NO ACUTE EVENTS.
[2022-09-18 11:28] LABS: Vancomycin, Random 11.5 ug/mL
--- NOTE | 2022-09-18 19:12 | NUR ---
Shift Summary Pt alert, oriented x3, intermittent forgetfulness noted. Pt impulsive when ambulating. Pt had a fall this am, assisted to ground by CUPOLA TAPPER HELPER; pt states she hit her head, c/o pain to left side of head, witness denies seeing the patient hot head; neuro assessment unchanged, monitored t/o shift, md notified. Pt 1-2 person assist to bsc for remainer of shift. Pt denies chest pain/pressure, sob, nausea, and dizziness. Pt has chest tube to right anterior chest wall, no additional drainage t/o shift. Spo2 >90% on t/o shift on 2l o2 via nc. Other vss. No other acute changes noted t/o shift. Report given to oncoming rn.
--- NOTE | 2022-09-19 05:35 | NUR ---
SHIFT SUMMARY ASSUMED CARE OF PT AT 1900. PT IS A/OX4. HEART SOUNDS IRREGULAR. LUNG SOUNDS DIMINISHED AT BASES. CHEST TUBE HAS MINIMAL DRAINAGE. PT WAS A SBA TO BS. NO ACUTE EVENTS, PT SLEPT T/O THE NIGHT. PT C/O PAIN IN LOWER BACK, MEDICATED PER EMAR.
[2022-09-19 07:21] LABS: Hematocrit 25.6 % (33.0-51.0); Hemoglobin 8.6 g/dL (11.5-16.0)
[2022-09-19 07:46] LABS: Albumin, Blood 2.3 g/dL (3.4-5.0); Albumin/Globulin Ratio 0.7 (0.8-1.8); Bun/Creatinine Ratio 16.1 (12.0-20.0); Calcium, Blood 8.6 mg/dL (8.5-10.1); Creatinine, Blood 4.66 mg/dL (0.40-1.00); Globulin, Blood 3.2 g/dL (2.2-4.0); Potassium, Blood 5.4 mmol/L (3.5-5.5); Total Protein, Blood 5.5 g/dL (6.4-8.2)
--- NOTE | 2022-09-19 09:26 | NUR ---
AM NOTE: PATIENT ALERT AND ORIENTED X3-4. AT TIMES ODD/CONFUSING STATEMENTS. PERRLA. BILATERAL PROGRAM LEAD STRENGTH AND MOVEMENTS. OVERALL WEAKNESS. 1-2 PERSON SBA TO BSC. DENIES N/T. NO FACIAL DROOP NOTED. ON 2L NC, PATIENTS BASELINE. SATING ABOVE 95%. DENIES SOB. OCCASIONAL COUGH. NOT ABLE TO PRODUCE SPUTUM AT THIS TIME. LUNGS SOUNDING CLEAR IN UPPER LOBES AND DIM IN BASES. RIGHT UPPER CHEST WALL THORAVENT CHEST TUBE IN PLACE. MINIMAL SEROUS DRAINAGE IN CHAMBER. THORAVENT TAPE REINFORCED THIS AM. PLAN FOR CHEST XRAY WHEN DIALYSIS IS COMPLETED. TELE SHOWING AFIB WITH HR 70-80'S. BP STABLE. DENIES CHEST PAIN/PRESSURE/PALPITATIONS. PPP. GENERALIZED EDEMA. DIALYSIS THIS AM. LEFT UPPER ARM FISTULA WNL. DENIES ABDOMINAL PAIN/NAUSEA. EATING BREAKFAST AND DRINKING FLUIDS. NO SWALLOW ISSUES NOTED. USING BSC TO VOID WITH 1-2 PERSON ASSIST WITH WALKER. SOME REDNESS NOTED TO BUTTOCK/DILEEP AREA. CLEANED AND POWDER APPLIED. ATTENDS IN PLACE. COMPLAINS OF 8/10 HEADACHE THIS AM, MEDICATED WITH TYLENOL. ABX INFUSING IN RIGHT UPPER ARM POWERGLIDE. DR. PEREZ AND RESIDENT TEAM BY TO ASSESS PATIENT. NO NEW ORDERS FOR THIS RN TO PLACE. MEDICAL STATUS, NO TELE. CALL LIGHT IN REACH. BED IN LOW LOCKED POSITION. WILL CONTINUE TO MONITOR.
[2022-09-19 13:25] LABS: Vancomycin, Random 13.6 ug/mL
--- NOTE | 2022-09-19 17:55 | NUR ---
SHIFT SUMMARY: NO ACUTE CHANGES. SEE PREVIOUS NOTES. REMAINS ALERT AND ORIENTED. REMAINS ON 2L NASAL CANNULA SATING MID 90'S. NO CHANGES TO THORAVENT. DR. IRAHETA IN TO SEE PATIENT. PLAN FOR CT TOMORROW. MEDICAL STATUS NO TELE. BP STABLE. UP TO BSC TO VOID. ATTENDS IN PLACE. EATING DINNER AT THIS TIME. VITALS REMAINS STABLE THROUGHOUT SHIFT. WILL CONTINUE TO MONITOR AND REPORT OFF TO ONCOMING RN.
[2022-09-20 04:51] LABS: BASOPHILS PERCENT AUTO 0 % (0-2); EOSINOPHILS ABSOLUTE AUTO 0.11 K/mm3 (0.00-0.68); EOSINOPHILS PERCENT AUTO 1 % (0-6); Hematocrit 25.3 % (33.0-51.0); Hemoglobin 8.4 g/dL (11.5-16.0); IMMATURE GRAN ABSOLUTE AUTO 0.15 K/mm3 (0.00-0.10); IMMATURE GRAN PERCENT AUTO 1 % (0-1); LYMPHOCYTES ABSOLUTE AUTO 0.81 K/mm3 (0.84-5.20); LYMPHOCYTES PERCENT AUTO 7 % (21-46); MONOCYTES ABSOLUTE AUTO 0.38 K/mm3 (0.16-1.47); MONOCYTES PERCENT AUTO 4 % (4-13); Mean Corpuscular HGB 32.1 pg (26.0-34.0); Mean Corpuscular HGB Conc 33.2 g/dL (31.5-36.5); Mean Corpuscular Volume 97 fL (80-100); Mean Platelet Volume 10.5 fL (9.1-12.4); NEUTROPHILS ABSOLUTE AUTO 9.54 K/mm3 (1.96-9.15); NEUTROPHILS PERCENT AUTO 87 % (41-73); Platelet Count 101 K/mm3 (150-400); RDW Coefficient Variation 14.7 % (11.7-14.2); RDW Standard Deviation 51.6 fL (35.1-46.3); Red Blood Cell Count 2.62 M/mm3 (3.80-5.20); White Blood Cell Count 10.99 K/mm3 (4.00-11.30)
[2022-09-20 05:04] LABS: Albumin, Blood 2.2 g/dL (3.4-5.0); Albumin/Globulin Ratio 0.7 (0.8-1.8); Bilirubin, Total 0.9 mg/dL (0.1-1.0); Bun/Creatinine Ratio 13.2 (12.0-20.0); Calcium, Blood 8.9 mg/dL (8.5-10.1); Creatinine, Blood 2.96 mg/dL (0.40-1.00); Globulin, Blood 3.1 g/dL (2.2-4.0); Potassium, Blood 4.4 mmol/L (3.5-5.5); Total Protein, Blood 5.3 g/dL (6.4-8.2)
--- NOTE | 2022-09-20 05:40 | NUR ---
Patient slept most of the night. Still remains on 2L NC and sats above 92%, LS coarse on top and dim at bases. VSS. No acute events overnight. Will report to dayshift ARACELI.
--- NOTE | 2022-09-20 16:34 | NUR ---
SHIFT SUMMARY PT IS ALERT AND ORIENTED X 4, SHE IS ABLE TO MAKE HER NEEDS KNOWN AND ANSWERS QUESTIONS APPROPRIATELY. HR AND BP STABLE, SPO2 MAINTAINED >95% VIA 2L NC WHICH IS THE PT'S BASELINE O2 DEMAND. THIS AFTERNOON THORA VENT REMOVED BY DR. RAHLU MARIN COVERED W/ GAUZE, GAUZE IS D/C/I. SHE REPORTED PAIN AFTER REMOVAL OF THORA VENT, SEE EMAR FOR PAIN MANAGEMENT. SHE HAS BEEN A 1 PERSON SBA TO BEDSIDE COMMODE, SHE HAS SAT IN CHAIR FOR BEGINNING OF SHIFT AND FOR MEALS. WET, NON-PRODUCTIVE COUGH NOTED. PG IN [place] IS SALINE LOCKED. BRUIT AND THRILL NOTED IN ALONDRA FISTULA. NO OTHER ACUTE CHANGES NOTED. WILL CONTINUE TO ENCOURAGE SITTING IN CHAIR, WILL CONTINUE TO MONITOR UNTIL REPORT GIVEN. CALL LIGHT IN REACH.
[2022-09-21 03:49] LABS: BASOPHILS ABSOLUTE AUTO 0.01 K/mm3 (0.00-0.23); BASOPHILS PERCENT AUTO 0 % (0-2); EOSINOPHILS ABSOLUTE AUTO 0.13 K/mm3 (0.00-0.68); EOSINOPHILS PERCENT AUTO 1 % (0-6); Hemoglobin 7.9 g/dL (11.5-16.0); IMMATURE GRAN ABSOLUTE AUTO 0.16 K/mm3 (0.00-0.10); IMMATURE GRAN PERCENT AUTO 1 % (0-1); LYMPHOCYTES ABSOLUTE AUTO 0.81 K/mm3 (0.84-5.20); LYMPHOCYTES PERCENT AUTO 7 % (21-46); MONOCYTES ABSOLUTE AUTO 0.43 K/mm3 (0.16-1.47); MONOCYTES PERCENT AUTO 4 % (4-13); Mean Corpuscular HGB Conc 32.9 g/dL (31.5-36.5); Mean Corpuscular Volume 97 fL (80-100); Mean Platelet Volume 10.7 fL (9.1-12.4); NEUTROPHILS ABSOLUTE AUTO 10.69 K/mm3 (1.96-9.15); NEUTROPHILS PERCENT AUTO 87 % (41-73); Platelet Count 102 K/mm3 (150-400); RDW Coefficient Variation 14.6 % (11.7-14.2); RDW Standard Deviation 51.8 fL (35.1-46.3); Red Blood Cell Count 2.47 M/mm3 (3.80-5.20); White Blood Cell Count 12.23 K/mm3 (4.00-11.30)
--- NOTE | 2022-09-21 03:56 | NUR ---
End of shift summary no overnight events noted vital sighns have been wnl. pt remains a&o x3 fierro she has ambulated to bedside comode with walker and gate belt one assist. she has complained of pain in back she has gotten prn oxy x2. 7.5mg. she is on her home o2 requierments of 2l nc she sounds course more so on left. will continue to monitor and report off to oncoming rn
[2022-09-21 04:05] LABS: Albumin/Globulin Ratio 0.6 (0.8-1.8); Bilirubin, Total 1.1 mg/dL (0.1-1.0); Bun/Creatinine Ratio 13.3 (12.0-20.0); Calcium, Blood 8.9 mg/dL (8.5-10.1); Creatinine, Blood 3.98 mg/dL (0.40-1.00); Globulin, Blood 3.2 g/dL (2.2-4.0); Phosphorus, Blood 5.1 mg/dL (2.5-4.9); Potassium, Blood 5.5 mmol/L (3.5-5.5); Total Protein, Blood 5.2 g/dL (6.4-8.2)
--- NOTE | 2022-09-21 08:00 | NUR ---
PT TO DIALYSIS, WILL FINISH MORNING MEDICATIONS WHEN SHE RETURNS
[2022-09-21 12:55] LABS: Vancomycin, Random 11.1 ug/mL
--- NOTE | 2022-09-21 17:53 | NUR ---
REPORT TO MEDICAL FLOOR NURSE WHO WILL RESUME PT CARE. PT A/O X3 UP TO BSC WITH 2 PERSON ASSIST. VSS. THIAMINE INFUSING.
--- NOTE | 2022-09-21 18:41 | NUR ---
0303 TRANSFER REPORT FROM JAYME DAVIS RN, PATIENT NOT TO THE FLOOR YET, WILL RELAY TO PM RN
[2022-09-22 05:44] LABS: BASOPHILS PERCENT AUTO 0 % (0-2); EOSINOPHILS ABSOLUTE AUTO 0.02 K/mm3 (0.00-0.68); EOSINOPHILS PERCENT AUTO 0 % (0-6); Hematocrit 23.4 % (33.0-51.0); Hemoglobin 7.8 g/dL (11.5-16.0); IMMATURE GRAN ABSOLUTE AUTO 0.08 K/mm3 (0.00-0.10); IMMATURE GRAN PERCENT AUTO 1 % (0-1); LYMPHOCYTES ABSOLUTE AUTO 0.49 K/mm3 (0.84-5.20); LYMPHOCYTES PERCENT AUTO 5 % (21-46); MONOCYTES ABSOLUTE AUTO 0.35 K/mm3 (0.16-1.47); MONOCYTES PERCENT AUTO 3 % (4-13); Mean Corpuscular HGB 32.4 pg (26.0-34.0); Mean Corpuscular HGB Conc 33.3 g/dL (31.5-36.5); Mean Corpuscular Volume 97 fL (80-100); Mean Platelet Volume 10.4 fL (9.1-12.4); NEUTROPHILS ABSOLUTE AUTO 9.24 K/mm3 (1.96-9.15); NEUTROPHILS PERCENT AUTO 91 % (41-73); Platelet Count 107 K/mm3 (150-400); RDW Coefficient Variation 14.6 % (11.7-14.2); RDW Standard Deviation 50.8 fL (35.1-46.3); Red Blood Cell Count 2.41 M/mm3 (3.80-5.20); White Blood Cell Count 10.18 K/mm3 (4.00-11.30)
[2022-09-22 06:13] LABS: Albumin/Globulin Ratio 0.6 (0.8-1.8); Bilirubin, Total 0.9 mg/dL (0.1-1.0); Bun/Creatinine Ratio 10.3 (12.0-20.0); Creatinine, Blood 2.73 mg/dL (0.40-1.00); Globulin, Blood 3.2 g/dL (2.2-4.0); Potassium, Blood 4.5 mmol/L (3.5-5.5); Total Protein, Blood 5.2 g/dL (6.4-8.2)
--- NOTE | 2022-09-22 06:22 | NUR ---
SLEPT WELL AFTER DOSE OF 7.5MG PERCOCET FOR BACK PAIN. DILEEP AREA CLEANSED AFTER INCONTINENT VOID AND COMBINATION OF PINK BARRIER CREAM AND SILICONE LOTION APPLIED FOR PROTECTION. A&OX4, PLEASANT AND COOPERATIVE WITH CARE. TWO ASSIST WITH GAIT BELT TO BEDSIDE COMMODE. AWARE SHE WILL NOT BE ABLE TO RETURN TO [facility].
--- NOTE | 2022-09-22 18:14 | NUR ---
ALERT AND ORIENTED, PLEASANT TO ALL CARE AND INTERACTION. FREINDS VISITED TODAY, DENEIS PAIN OR N/V, GOOD APPETITE, USES CALL LIGHT WHEN NEEDING TO VOID, ATTENDS ON, PATIENT TO BE PLACED AT A ADULT FACILILTY, CASE MANAGEMENT AWARE. CALL LIGHT WITH IN REACH, WILL RELAY TO PM RN
--- NOTE | 2022-09-23 05:14 | NUR ---
SHIFT SUMMARY 62 YR M ADMITTED ON 09/16/22 FOR ACUTE PNEUMOTHORAX. FULL CODE. NO ACUTE CHANGES THIS SHIFT. PT IS PLEASANT AND COOPERATIVE WITH CARE. C/O BACK PAIN AND MEDICATED PER EMAR. SHE HAS BEEN SLEEPING COMFORTABLY FOR MOST OF THIS SHIFT. LUNG SOUNDS COURSE W/ DIM BASES, BUT SHE APPEARS TO BE BREATHING EASILY AND HAS HAD NO C/O SOB OR CHEST PAIN.
[2022-09-23 05:36] LABS: BASOPHILS ABSOLUTE AUTO 0.01 K/mm3 (0.00-0.23); BASOPHILS PERCENT AUTO 0 % (0-2); EOSINOPHILS ABSOLUTE AUTO 0.06 K/mm3 (0.00-0.68); EOSINOPHILS PERCENT AUTO 1 % (0-6); Hematocrit 23.7 % (33.0-51.0); Hemoglobin 7.9 g/dL (11.5-16.0); IMMATURE GRAN ABSOLUTE AUTO 0.08 K/mm3 (0.00-0.10); IMMATURE GRAN PERCENT AUTO 1 % (0-1); LYMPHOCYTES ABSOLUTE AUTO 0.96 K/mm3 (0.84-5.20); LYMPHOCYTES PERCENT AUTO 9 % (21-46); MONOCYTES ABSOLUTE AUTO 0.52 K/mm3 (0.16-1.47); MONOCYTES PERCENT AUTO 5 % (4-13); Mean Corpuscular HGB 32.4 pg (26.0-34.0); Mean Corpuscular HGB Conc 33.3 g/dL (31.5-36.5); Mean Corpuscular Volume 97 fL (80-100); Mean Platelet Volume 10.9 fL (9.1-12.4); NEUTROPHILS ABSOLUTE AUTO 9.29 K/mm3 (1.96-9.15); NEUTROPHILS PERCENT AUTO 85 % (41-73); Platelet Count 119 K/mm3 (150-400); RDW Coefficient Variation 14.6 % (11.7-14.2); Red Blood Cell Count 2.44 M/mm3 (3.80-5.20); White Blood Cell Count 10.92 K/mm3 (4.00-11.30)
[2022-09-23 06:09] LABS: Albumin, Blood 2.1 g/dL (3.4-5.0); Anion Gap 9 mmol/L (6-16); Blood Urea Nitrogen 48 mg/dL (8-24); Bun/Creatinine Ratio 11.8 (12.0-20.0); CO2, Blood 28 mmol/L (21-32); Calcium, Blood 8.8 mg/dL (8.5-10.1); Chloride, Blood 94 mmol/L (98-108); Creatinine, Blood 4.06 mg/dL (0.40-1.00); Glomerular Filtration Rate 12 (60-); Glucose, Blood 88 mg/dL (70-99); Phosphorus, Blood 4.9 mg/dL (2.5-4.9); Potassium, Blood 4.9 mmol/L (3.5-5.5); Sodium, Blood 131 mmol/L (136-145)
--- NOTE | 2022-09-23 19:14 | NUR ---
SHIFT SUMMARY- PT IS A/O, PLESANT AND COOPERTATIVE. SHE IS EATING AND DRINKING WELL. SHE WORKED WITH PT THIS SHIFT AND TOLERATED WELL. SHE AMBULATED TO THE RESTROOM THIS SHIFT BUT HAD SOME DIFFICULTY GETTING OFF THE TOILET. SHE IS RECIEVING IV ABX. HER BED IS IN THE LOW POSITION AND CALL LIGHT IS WITIN REACH.
--- NOTE | 2022-09-23 20:50 | NUR ---
A&OX4. PATIENT EFFECTIVELY COMMUNICATES NEEDS. CALL LIGHT WITHIN REACH. BED LOW AND LOCKED. VSS. 2L O2 VIA NC. PAIN ASSESSED AND MEDICATED PER EMAR. ZOSYN INFUSING PER EMAR INTO RUE. LUE FISTULA WITH BRUITS AND THRILL. NO ACUTE CONCERNS AT THIS TIME. WILL CONTINUE TO CLOSELY MONITOR.
--- NOTE | 2022-09-24 04:23 | NUR ---
SHIFT SUMMARY A&OX4. PT EFFECTIVELY COMMUNICATES NEEDS. VSS. 2L O2 NC CHRONICALLY. ZOSYN ADMINISTERED PER EMAR; NO ASE. NS INFUSING KVO INTO RUE POWERGLIDE. LUE FISTULA /C BRUITS AND THRILL. RIGHT CHEST TUBE INSERTION SITE WITHOUT SIGNS OF INFECTION. PAIN MEDICATED PER EMAR. PT REPORTED RELIEF AND WAS OBSERVED SLEEPING COMFORTABLY THROUGHOUT THE NIGHT. NO ACUTE CONCERNS. CONTACT PRECAUTIONS FOR MRSA OF THE NARES MAINTAINED.
[2022-09-24 08:33] LABS: BASOPHILS ABSOLUTE AUTO 0.01 K/mm3 (0.00-0.23); BASOPHILS PERCENT AUTO 0 % (0-2); EOSINOPHILS ABSOLUTE AUTO 0.09 K/mm3 (0.00-0.68); EOSINOPHILS PERCENT AUTO 1 % (0-6); Hematocrit 24.3 % (33.0-51.0); Hemoglobin 8.1 g/dL (11.5-16.0); IMMATURE GRAN ABSOLUTE AUTO 0.09 K/mm3 (0.00-0.10); IMMATURE GRAN PERCENT AUTO 1 % (0-1); LYMPHOCYTES ABSOLUTE AUTO 1.06 K/mm3 (0.84-5.20); LYMPHOCYTES PERCENT AUTO 11 % (21-46); MONOCYTES ABSOLUTE AUTO 0.51 K/mm3 (0.16-1.47); MONOCYTES PERCENT AUTO 6 % (4-13); Mean Corpuscular HGB 32.4 pg (26.0-34.0); Mean Corpuscular HGB Conc 33.3 g/dL (31.5-36.5); Mean Corpuscular Volume 97 fL (80-100); Mean Platelet Volume 10.5 fL (9.1-12.4); NEUTROPHILS ABSOLUTE AUTO 7.52 K/mm3 (1.96-9.15); NEUTROPHILS PERCENT AUTO 81 % (41-73); Platelet Count 132 K/mm3 (150-400); RDW Coefficient Variation 14.9 % (11.7-14.2); RDW Standard Deviation 52.5 fL (35.1-46.3); White Blood Cell Count 9.28 K/mm3 (4.00-11.30)
[2022-09-24 08:50] LABS: Bun/Creatinine Ratio 12.5 (12.0-20.0); Calcium, Blood 8.8 mg/dL (8.5-10.1); Creatinine, Blood 5.3 mg/dL (0.40-1.00); Potassium, Blood 5.3 mmol/L (3.5-5.5)
[2022-09-24 12:17] LABS: SARS-Cov-2 (COVID-19) PCR, MMC NEGATIVE (NEGATIVE)
--- NOTE | 2022-09-24 14:30 | NUR ---
REPORT CALLED TO [facility]. PT RETURNED FROM DIALYSIS AT APPROX 1330 AND ATE LUNCH. UP TO COMMODE WITH LARGE STOOL AND URINE. 1 PERSON ASSIST THEN TO W/C USING FWW. BELONGINGS WITH PT ON DISCHARGE. TO [facility] VIA W/C.
== END 2022-09-24 14:27 | DRG 177 ==
LOC: ER 11:46 → MEDS 15:39 → PCU 15:39 → MEDS 09-21 18:59
PROVIDERS: Emergency Medicine; Family Medicine; Internal Medicine Critical Care Medicine; Internal Medicine Nephrology; Surgery Pediatric Surgery; ADMIT Internal Medicine
PROC: 0W9930Z Drainage of Right Pleural Cavity with Drainage Device, Percutaneous Approach (ICD-10-PCS; principal; 2022-09-16)
PROC: 5A1D70Z Performance of Urinary Filtration, Intermittent, Less than 6 Hours Per Day (ICD-10-PCS; 2022-09-17)
DX: J15.212 Pneumonia due to Methicillin resistant Staphylococcus aureus (principal); J96.01 Acute respiratory failure with hypoxia; N18.6 End stage renal disease; J93.12 Secondary spontaneous pneumothorax; J44.1 Chronic obstructive pulmonary disease with (acute) exacerbation; I12.0 Hypertensive chronic kidney disease with stage 5 chronic kidney disease or end stage renal disease; E87.1 Hypo-osmolality and hyponatremia; J91.8 Pleural effusion in other conditions classified elsewhere; G93.49 Other encephalopathy; J44.0 Chronic obstructive pulmonary disease with (acute) lower respiratory infection; I48.20 Chronic atrial fibrillation, unspecified; D63.1 Anemia in chronic kidney disease; E87.5 Hyperkalemia; E66.01 Morbid (severe) obesity due to excess calories; F17.210 Nicotine dependence, cigarettes, uncomplicated; I95.3 Hypotension of hemodialysis; G89.29 Other chronic pain; E83.39 Other disorders of phosphorus metabolism; Z20.822 Contact with and (suspected) exposure to COVID-19; Z90.49 Acquired absence of other specified parts of digestive tract; Z99.2 Dependence on renal dialysis; Z98.890 Other specified postprocedural states; Z88.5 Allergy status to narcotic agent; Z88.8 Allergy status to other drugs, medicaments and biological substances; Z79.899 Other long term (current) drug therapy; Z79.51 Long term (current) use of inhaled steroids; Z79.01 Long term (current) use of anticoagulants; Z79.891 Long term (current) use of opiate analgesic; Z79.52 Long term (current) use of systemic steroids; Z95.828 Presence of other vascular implants and grafts; Z68.34 Body mass index [BMI] 34.0-34.9, adult
CPT/HCPCS: 0241U; 32551; 36415; 71045; 71250; 80048; 80053; 80069; 80202; 81001; 82803; 83605; 83735; 83880; 83970; 84100; 84132; 84484; 85014; 85018; 85025; 87040; 87086; 93005; 93010; 94640; 94664; 94760; 94762; 96374-59; 96375-59; 97110; 97116; 97162; 97165; 97535; 99285-25; A9270; C1751; J0696; J1644; J1650; J2060; J2543; J2930; J3370; J3411; J7050; J7512; P9047; P9612; Q5106; U0004

== ENCOUNTER 2022-10-17 01:03 | Day surgery (SDC) | payer MEDICARE, OTHER | END 2022-10-17 16:54 | LOC: ATC 01:03 | DX: I12.0 Hypertensive chronic kidney disease with stage 5 chronic kidney disease or end stage renal disease (principal); Z88.5 Allergy status to narcotic agent; N18.6 End stage renal disease; Z99.2 Dependence on renal dialysis; D63.1 Anemia in chronic kidney disease; F17.210 Nicotine dependence, cigarettes, uncomplicated; E66.9 Obesity, unspecified; J18.1 Lobar pneumonia, unspecified organism; J44.0 Chronic obstructive pulmonary disease with (acute) lower respiratory infection | CPT/HCPCS: 36415; 86850; 86900; 86901; 86923; J7040; P9016 ==

== ENCOUNTER → 2022-12-10 | Outpatient (CLI) | payer MEDICARE, OTHER ==
[2022-12-11 10:06] LABS: Candida species (DNA Probe) Negative (NEGATIVE); G. vaginalis (DNA Probe) Positive (NEGATIVE); T. vaginalis (DNA Probe) Negative (NEGATIVE)
== END | disposition home or self-care (01) ==
LOC: LAB 16:31 → LAB SHORT 16:31
PROVIDERS: Student in an Organized Health Care Education/Training Program
DX: L29.3 Anogenital pruritus, unspecified (principal)
CPT/HCPCS: 87480; 87510; 87660

== ENCOUNTER → 2023-01-22 | Outpatient (CLI) | payer MEDICARE, OTHER ==
[2023-01-23 08:23] LABS: Candida species (DNA Probe) Negative (NEGATIVE); G. vaginalis (DNA Probe) Positive (NEGATIVE); T. vaginalis (DNA Probe) Negative (NEGATIVE)
== END | disposition home or self-care (01) ==
LOC: LAB 15:00 → LAB SHORT 15:00
PROVIDERS: Family Medicine
DX: N89.8 Other specified noninflammatory disorders of vagina (principal)
CPT/HCPCS: 87480; 87510; 87660

== ENCOUNTER 2023-02-01 08:49 | Emergency (ER) | payer MEDICARE, OTHER ==
[~2023-02-01] VITALS: Ht 170.2 cm; Wt 136.1 kg
[2023-02-01] MEDS ORDERED: BUPROPION XL150 M1 PO (10:15)
[2023-02-01] MEDS ORDERED: DESV50 PO (10:17)
[2023-02-01 11:59] LABS: Influenza A, PCR NEGATIVE (NEGATIVE); Influenza B, PCR NEGATIVE (NEGATIVE); Resp Syncytial Virus, PCR NEGATIVE (NEGATIVE); SARS-Cov-2 (COVID-19) PCR, MMC NEGATIVE (NEGATIVE)
[2023-02-01 12:01] LABS: BASOPHILS ABSOLUTE AUTO 0.02 K/mm3 (0.00-0.23); BASOPHILS PERCENT AUTO 0 % (0-2); EOSINOPHILS ABSOLUTE AUTO 0.08 K/mm3 (0.00-0.68); EOSINOPHILS PERCENT AUTO 2 % (0-6); Hematocrit 36.8 % (33.0-51.0); Hemoglobin 11.4 g/dL (11.5-16.0); IMMATURE GRAN ABSOLUTE AUTO 0.01 K/mm3 (0.00-0.10); IMMATURE GRAN PERCENT AUTO 0 % (0-1); LYMPHOCYTES ABSOLUTE AUTO 1.63 K/mm3 (0.84-5.20); LYMPHOCYTES PERCENT AUTO 31 % (21-46); MONOCYTES ABSOLUTE AUTO 0.27 K/mm3 (0.16-1.47); MONOCYTES PERCENT AUTO 5 % (4-13); Mean Corpuscular HGB 29.3 pg (26.0-34.0); Mean Corpuscular Volume 95 fL (80-100); Mean Platelet Volume 11.4 fL (9.1-12.4); NEUTROPHILS ABSOLUTE AUTO 3.19 K/mm3 (1.96-9.15); NEUTROPHILS PERCENT AUTO 61 % (41-73); Platelet Count 139 K/mm3 (150-400); RDW Standard Deviation 54.6 fL (35.1-46.3); Red Blood Cell Count 3.89 M/mm3 (3.80-5.20)
[2023-02-01 12:22] LABS: Albumin, Blood 3.1 g/dL (3.4-5.0); Albumin/Globulin Ratio 0.9 (0.8-1.8); Bilirubin, Total 0.4 mg/dL (0.1-1.0); Bun/Creatinine Ratio 5.4 (12.0-20.0); Calcium, Blood 8.6 mg/dL (8.5-10.1); Creatinine, Blood 5.58 mg/dL (0.40-1.00); Globulin, Blood 3.4 g/dL (2.2-4.0); Potassium, Blood 4.1 mmol/L (3.5-5.5); Total Protein, Blood 6.5 g/dL (6.4-8.2)
== END 2023-02-01 17:40 | disposition home or self-care (01) ==
LOC: ER 08:49
PROVIDERS: Student in an Organized Health Care Education/Training Program
DX: T82.898A Other specified complication of vascular prosthetic devices, implants and grafts, initial encounter (principal); Y83.8 Other surgical procedures as the cause of abnormal reaction of the patient, or of later complication, without mention of misadventure at the time of the procedure; I12.0 Hypertensive chronic kidney disease with stage 5 chronic kidney disease or end stage renal disease; N18.6 End stage renal disease; J44.9 Chronic obstructive pulmonary disease, unspecified; Z20.822 Contact with and (suspected) exposure to COVID-19; Z88.5 Allergy status to narcotic agent; Z88.8 Allergy status to other drugs, medicaments and biological substances; Z79.899 Other long term (current) drug therapy; Z87.891 Personal history of nicotine dependence
CPT/HCPCS: 0241U; 36415; 80053; 85025; 93971

== ENCOUNTER 2023-02-04 12:16 | Observation (INO) | payer MEDICARE, OTHER ==
[~2023-02-04] VITALS: Ht 170.2 cm; Wt 107.0 kg
[2023-02-04] VITALS (9 sets, daily range): BP systolic 71–154; BP diastolic 42–109
[~2023-02-04 12:16] MED LIST changes: +BUPROPION XL150 M1 PO
[2023-02-04] MEDS ORDERED: GABA300 PO ×2 (13:53)
[2023-02-04] MEDS ORDERED: FURO80 PO (13:55)
[2023-02-04] MEDS ORDERED: ABILIFY MYCITE2 M2 PO (13:56)
[2023-02-04 16:20] LABS: BASOPHILS ABSOLUTE AUTO 0.03 K/mm3 (0.00-0.23); BASOPHILS PERCENT AUTO 1 % (0-2); EOSINOPHILS ABSOLUTE AUTO 0.13 K/mm3 (0.00-0.68); EOSINOPHILS PERCENT AUTO 2 % (0-6); Hematocrit 35.2 % (33.0-51.0); Hemoglobin 11.1 g/dL (11.5-16.0); IMMATURE GRAN ABSOLUTE AUTO 0.01 K/mm3 (0.00-0.10); IMMATURE GRAN PERCENT AUTO 0 % (0-1); LYMPHOCYTES ABSOLUTE AUTO 2.54 K/mm3 (0.84-5.20); LYMPHOCYTES PERCENT AUTO 39 % (21-46); MONOCYTES ABSOLUTE AUTO 0.32 K/mm3 (0.16-1.47); MONOCYTES PERCENT AUTO 5 % (4-13); Mean Corpuscular HGB 29.4 pg (26.0-34.0); Mean Corpuscular HGB Conc 31.5 g/dL (31.5-36.5); Mean Corpuscular Volume 93 fL (80-100); Mean Platelet Volume 10.5 fL (9.1-12.4); NEUTROPHILS ABSOLUTE AUTO 3.53 K/mm3 (1.96-9.15); NEUTROPHILS PERCENT AUTO 54 % (41-73); Platelet Count 166 K/mm3 (150-400); RDW Coefficient Variation 16.3 % (11.7-14.2); RDW Standard Deviation 55.2 fL (35.1-46.3); Red Blood Cell Count 3.78 M/mm3 (3.80-5.20); White Blood Cell Count 6.56 K/mm3 (4.00-11.30)
[2023-02-04 16:51] LABS: Albumin, Blood 2.9 g/dL (3.4-5.0); Albumin/Globulin Ratio 0.9 (0.8-1.8); Bilirubin, Total 0.5 mg/dL (0.1-1.0); Calcium, Blood 9.3 mg/dL (8.5-10.1); Creatinine, Blood 9.27 mg/dL (0.40-1.00); Globulin, Blood 3.4 g/dL (2.2-4.0); Potassium, Blood 5.9 mmol/L (3.5-5.5); Total Protein, Blood 6.3 g/dL (6.4-8.2)
--- NOTE | 2023-02-04 19:51 | NUR ---
DIALYSIS NOTE IN TO ASSESS ALONDRA AVF, BRUIT NOTED, NO THRILL PRESENT ON PALPATATION OR AUSCULTATION. UNABLE TO CANNULATE SUCCESSFULLY & NO HD TX PROVIDED. TELEHEALTH VISIT WITH DR. BURCH AND PT FACILITATED BY THIS RN. PLANS FOR PT TO RETURN TO TEST DIRECTOR IN AM FOR CVC/ PERMCATH PLACEMENT AND HD TX TOMORROW. BEDSIDE RN PRESENT DURING ENCOUNTER AND AWARE OF PLANS.
--- NOTE | 2023-02-04 22:11 | NUR ---
TRANSFER NOTE/ASSUMPTION OF CARE THIS RN ASSUMED CARE OF PATIENT AT 1900 AT WHICH POINT PATIENT ARRIVED FROM TO PCU 6. PATIENT ALERT AND ORIENTED FULLY. LEFT FISTULA SITE WITH NOTED STRONG PULSE. PER VERBAL REPORT FROM HC RN, PROCEDURE WAS UNSUCCESSFUL TO GET PATENCY OF FISTULA. UNABLE TO PALPATE/AUSCULTATE FISTULA, ONLY PULSE NOTED. ARTERIAL SITE FROM PROCEDURE WITH SUTURES AND TEGADERM, VENOUS STASIS DEVICE WITH TEGADERM ON LEFT ARM. SITE HARD TO PALPATION WITH SLIGHT REDNESS AT TIME OF ARRIVAL TO UNIT. SITE CURRENTLY REMAINS UNCHANGED AT TIME OF WRITING THIS NOTE. NO SIGNS OF BLEEDING/OOZING, NO HEMATOMA. STRONG RADIAL PULSE NOTED. CAP REFILL <3 SECONDS. PATIENT HAS SENSATION AND IS ABLE TO MOVE ALL FINGERS WELL. C/O PAIN TO ARM WTIH GOOD RESULTS FROM PO PAIN MEDS. BP STABLE. AFIB ON MONITOR WITH HR 70-80'S. DENIES CHEST PAIN/PRESSURE. SPO2 >92% ON RA. AFEBRILE. PATIENT IS ABLE TO MOVE SELF IN BED AND IS BEING ASSISTED NECESSARY BY STAFF. CALLING APPROPRIATELY. PUREWICK AND ATTENDS IN PLACE. MEDICATING PER EMAR. BED IN LOWEST POSITION AND CALL LIGHT WITHIN REACH.
[2023-02-04 22:24] LABS: Bun/Creatinine Ratio 7.2 (12.0-20.0); Calcium, Blood 9.1 mg/dL (8.5-10.1); Creatinine, Blood 9.46 mg/dL (0.40-1.00); Potassium, Blood 5.1 mmol/L (3.5-5.5)
[2023-02-05] VITALS (24 sets, daily range): BP systolic 47–151; BP diastolic 33–96
--- NOTE | 2023-02-05 05:42 | NUR ---
SHIFT SUMMARY PATIENT ALERT AND ORIENTED FULLY. NO CHANGES TO LUE FISTULA SITE. VENOUS STASIS AND SUTURES ARE INTACT. NO OOZING, BLEEDING, HEMATOMA, OR DISCOLARTION NOTED. SITE CONTINUES TO HAVE SLIGHT REDNESS AND HARDNESS, WITH PAIN WITH PALPATION THAT IS UNCHANGED FROM PREVIOUS NOTE UPON ARRIVAL. FISTULA CONTINUES TO HAVE NO THRILL/BRUIT TO PALPATION/AUSCULTATION. SEE PREVIOUS NOTE REGARDING HYPOTENSION. BP STABLE AT THIS TIME WITH SBP 100'S, MAP >65. AFIB WITH HR 40-70'S THROUGHOUT THIS SHIFT. JAIRO WHILE SLEEPING. APNEA NOTED WHILE SLEEPING. ON RA WITH SPO2 >92%. AFEBRILE. PATIENT WTIH GOOD SENSATION IN ALL EXTREMETIES. STRONG PULSES PALPATED. BS+. PUREWICK IN PLACE; NO OUTPUT YET THIS SHIFT. MEDICATING PER EMAR FOR PAIN. ASSISTING NEEDED FOR REPOSITIONING. BED IN LOWEST POSITION AND CALL LIGHT WITHIN REACH. THIS RN WILL CONTINUE TO MONITOR UNTIL SHIFT CHANGE AT 0700.
[2023-02-05 06:37] LABS: Albumin, Blood 2.6 g/dL (3.4-5.0); Anion Gap 5 mmol/L (6-16); Blood Urea Nitrogen 70 mg/dL (8-24); Bun/Creatinine Ratio 7.8 (12.0-20.0); CO2, Blood 29 mmol/L (21-32); Calcium, Blood 8.6 mg/dL (8.5-10.1); Chloride, Blood 98 mmol/L (98-108); Creatinine, Blood 8.96 mg/dL (0.40-1.00); Glomerular Filtration Rate 5 (60-); Glucose, Blood 81 mg/dL (70-99); Phosphorus, Blood 3.8 mg/dL (2.5-4.9); Potassium, Blood 5.9 mmol/L (3.5-5.5); Sodium, Blood 132 mmol/L (136-145)
--- NOTE | 2023-02-05 08:31 | NUR ---
Pt is sitting up in chair, has no complaints at this time. Metoprolol held for low blood pressure; Dr. Greene was informed as she is rounding at this time. Still no exact time on the permacath placement today. tar chaser is attempting to reach heart center and nail down a time so that coordination with derrick follower can be facilitated.
--- NOTE | 2023-02-05 09:26 | NUR ---
Lab is having difficulty drawing labs. Unsuccessful attempt to put in a midline IV catheter. Will have coordinator try next.
[2023-02-05 10:11] LABS: BASOPHILS ABSOLUTE AUTO 0.01 K/mm3 (0.00-0.23); BASOPHILS PERCENT AUTO 0 % (0-2); EOSINOPHILS ABSOLUTE AUTO 0.08 K/mm3 (0.00-0.68); EOSINOPHILS PERCENT AUTO 2 % (0-6); Hematocrit 32.7 % (33.0-51.0); Hemoglobin 10.1 g/dL (11.5-16.0); IMMATURE GRAN ABSOLUTE AUTO 0.01 K/mm3 (0.00-0.10); IMMATURE GRAN PERCENT AUTO 0 % (0-1); LYMPHOCYTES PERCENT AUTO 30 % (21-46); MONOCYTES ABSOLUTE AUTO 0.28 K/mm3 (0.16-1.47); MONOCYTES PERCENT AUTO 5 % (4-13); Mean Corpuscular HGB 29.3 pg (26.0-34.0); Mean Corpuscular HGB Conc 30.9 g/dL (31.5-36.5); Mean Corpuscular Volume 95 fL (80-100); Mean Platelet Volume 10.3 fL (9.1-12.4); NEUTROPHILS ABSOLUTE AUTO 3.41 K/mm3 (1.96-9.15); NEUTROPHILS PERCENT AUTO 63 % (41-73); Platelet Count 165 K/mm3 (150-400); RDW Coefficient Variation 16.8 % (11.7-14.2); RDW Standard Deviation 57.2 fL (35.1-46.3); Red Blood Cell Count 3.45 M/mm3 (3.80-5.20); White Blood Cell Count 5.39 K/mm3 (4.00-11.30)
--- NOTE | 2023-02-05 11:56 | NUR ---
[facility] had predicted 1100 am for the permacath placement; however, the pt is still waiting for the staff to come and get her for the procedure. She is doing fine, alert, oriented and talking with visitors. Vital signs are stable. Improvement on heart rate and blood pressure since this morning. Metoprolol was held due to vital signs being out of parameters.
--- NOTE | 2023-02-05 12:41 | NUR ---
Pt's procedure is estimated to be today between 2-4 pm. Spoke with Chintan to update her on the plan.
--- NOTE | 2023-02-05 14:29 | NUR ---
Dr. Pepe was on the unit, and dish network installer Meghan asked about the pt's flowstasis device on the left arm. said that it could be removed. Flowstasis device and it's string was removed. Slight amount of oozing, stopped after a few minutes of light pressure with gauze. Sutures which are lateral and superior to the flostasis area are still intact, covered with tegederm CHG dressing.
--- NOTE | 2023-02-05 16:47 | NUR ---
Pt taken to heart center [facility] for permacath placement.
--- NOTE | 2023-02-05 18:06 | NUR ---
Pt returned to PCU 6 at this time. [facility] per report from Sonia.
--- NOTE | 2023-02-05 18:30 | NUR ---
Pt is alert, oriented and appropriate in conversation after return from heart center. ARACELI Woodson is in room to start dialysis. The pt is sitting up, eating dinner with a good appetite. Suture removed from the left arm, lateral side. No bleeding. Permacath is in the right chest wall.
--- NOTE | 2023-02-05 18:54 | NUR ---
maintenance parts technician informs me that Dr. Craven prefers that the pt have dialysis tomorrow again in the morning. She is getting dialysis at this time, and it won't be completed until later tonight. Getting her discharged home and then to her dialysis outpatient appointment (which is at 6 am at [facility]) would be a challenge. Called Dr. Martinez to make this request, which he would pass along to day shift. He concurs with Dr. Craven.
--- NOTE | 2023-02-05 22:27 | NUR ---
ASSUMPTION OF CARE THIS RN ASSUMED CARE OF PATIENT AT 1900. REPORT TAKEN FROM BECKY CHARLES. PATIENT ALERT AND ORIENTED FULLY. RECEIVING DIALYSIS IN ROOM WITH MANAGER PROGRESSIVE CARE DECEMBRE AT SHIFT CHANGE. DIALYSIS COMPLETED EARLIER D/T HYPOTENSION. FINISHING PRIOR TO 2100. SBP 80'S, THIS RN NOTES MIDIDRINE WAS NOT GIVEN PRIOR TO DIALYSIS, MIDODRINE GIVEN LATE AFTER DISCUSSING WITH CARDIOVASCULAR OR NURSE FLETCHER. PATIENT WITH SBP 90'S AND MAP OF 71 AT TIME OF WRITING THIS NOTE. HELD SCHEDULE EVENING PO METOPROLOL D/T BP. AFIB NOTED WITH HR 60-70'S, JAIRO TO 40'S BRIEFLY X1 SO FAR THIS SHIFT. WILL MONITOR CLOSELY. NO S/S OF CARDIAC OR RESPIRATORY DISTRESS. LUE FISTULA SITE CONTINUES TO NOT BE PATENT; PERMCATH PLACED TODAY IN RIGHT CHEST WALL. PREVIOUS RN DRESSED LUE SX SITE, DRESSING C/D/I, MILD OOZING ON DRESSING, SITE WITH NO SIGNS OF BLEEDING, HEMATOMA, OR DISCOLORATION. PAIN WITH PALPATION. BLE EDEMA NOTED. PPP. BS+. PATIENT APPEARS TO BE RESTING AT THIS TIME OTHER VITALS STABLE. BED IN LOWEST POSITION AND CALL LIGHT WITHIN REACH.
[2023-02-06] VITALS (20 sets, daily range): BP systolic 94–141; BP diastolic 34–79
--- NOTE | 2023-02-06 05:07 | NUR ---
SHIFT SUMMARY NO ACUTE CHANGES OVERNIGHT. NEURO CHECKS DONE Q4HRS AND WNL. HOB ELEVATED THROUGHOUT THIS SHIFT >45 DEGREES PER ORDER. PERMCATH SITE WITHOUT SIGNS OF HEMATOMA, OOZING, BLEEDING, INFLAMMATION, OR PAIN. DRESSING C/D/I. LUE FISTULA SITE REDRESSED WITH TEGADERM, MINIMAL OOZING BUT NO CHANGES SINCE PREVIOUS NOTE. SEE ASSESSMENT. BP STABLE SINCE PREVIOUS NOTE. AFIB WITH HR 40-70'S DURING THIS SHIFT; BRIEF EPISODES WHERE HR DROPPED TO 40'S. APNEA NOTED WHILE SLEEPING; DENIES ANDREW. ON RA WITH SPO2 >92%. PPP. BS+. DRESSING ON RT INNER THIGH CHANGED. UP TO BSC WITH MINIMAL ASSISTANCE. ABLE TO REPOSITION SELF IN BED WELL. BED IN LOWEST POSITION AND CALL LIGHT WITHIN REACH. THIS RN WILL CONTINUE TO MONITOR UNTIL SHIFT CHANGE AT 0700.
[2023-02-06 08:25] LABS: Bun/Creatinine Ratio 6.5 (12.0-20.0); Calcium, Blood 8.6 mg/dL (8.5-10.1); Creatinine, Blood 7.07 mg/dL (0.40-1.00); Potassium, Blood 5.3 mmol/L (3.5-5.5)
[2023-02-06] MEDS ORDERED: FLUT.05NI (12:43)
--- NOTE | 2023-02-06 13:28 | NUR ---
Call to attending physican Dr. Crawford regarding pt's home medications. She takes metoprolol 25 mg bid at home, but it has been held due to low heart rate and low blood pressures during this admission. Doctor recommends that the pt not take the medication until she follows up with her PCP.
--- NOTE | 2023-02-06 14:19 | NUR ---
Reveiwed discharge in structions with the patient. Removed IV access. Pt's friend is here and will be giving her a ride.
== END 2023-02-06 14:39 | disposition home or self-care (01) ==
LOC: ER 12:16 → PCU 12:18 → ER 15:41 → PCU 16:51 → ER 02-05 15:42 → PCU 02-05 15:43
PROVIDERS: Emergency Medicine; Family Medicine; ADMIT Hospitalist
DX: E87.5 Hyperkalemia (principal); N18.6 End stage renal disease; T82.868A Thrombosis due to vascular prosthetic devices, implants and grafts, initial encounter; I48.91 Unspecified atrial fibrillation; J44.9 Chronic obstructive pulmonary disease, unspecified; I12.0 Hypertensive chronic kidney disease with stage 5 chronic kidney disease or end stage renal disease; Z88.5 Allergy status to narcotic agent; Z88.8 Allergy status to other drugs, medicaments and biological substances; Z87.891 Personal history of nicotine dependence
CPT/HCPCS: 36415; 36558; 36905; 36907; 71045; 76937; 77001; 80048; 80053; 80069; 82947; 83880; 85025; 93005; 93010; 94644; 94664; 94762; 99152; 99153; 99284-25; A9270; C1725; C1750; C1751; C1757; C1769; C1887; C1894; G0257; G0378; J0612; J1644; J1815; J1940; J2250; J2401; J3010; J7030; J7040; P9046; Q9967

== ENCOUNTER 2023-08-31 13:50 | Emergency (ER) | payer OTHER, MEDICARE ==
[~2023-08-31] VITALS: Ht 167.6 cm; Wt 108.9 kg
[~2023-08-31 13:50] MED LIST changes: +ABILIFY MYCITE2 M2 PO; +FLUT.05NI; +GABA300 PO
[2023-08-31 14:03] LABS: Base Excess Venous -3.6 mmol/L; Bicarbonate Venous 19.8 mmol/L (24.0-30.0); PCO2 Venous 73.9 mmHg (38-42)
[2023-08-31 14:04] LABS: pH Blood Venous 7.14 (7.34-7.37)
[2023-08-31 14:05] LABS: Chloride (POC) 94 mmol/L (98-108); Glucose (ISTAT POC) 234 mg/dL (70-99); Hemoglobin (POC) 14.6 g/dL (12.0-16.0); Potassium (POC) 4.6 mmol/L (3.5-5.5); Sodium (POC) 134 mmol/L (135-148); Total CO2 (POC) 26 mmol/L (21-32)
[2023-08-31 14:20] LABS: Albumin, Blood 3.3 g/dL (3.4-5.0); Albumin/Globulin Ratio 0.9 (0.8-1.8); Bilirubin, Total 0.5 mg/dL (0.1-1.0); Bun/Creatinine Ratio 4.9 (12.0-20.0); Calcium, Blood 9.6 mg/dL (8.5-10.1); Creatinine, Blood 6.09 mg/dL (0.40-1.00); Globulin, Blood 3.6 g/dL (2.2-4.0); Potassium, Blood 4.7 mmol/L (3.5-5.5); Total Protein, Blood 6.9 g/dL (6.4-8.2)
[2023-08-31 14:24] LABS: Hematocrit 42.4 % (33.0-51.0); Mean Corpuscular HGB 31.6 pg (26.0-34.0); Mean Corpuscular HGB Conc 30.7 g/dL (31.5-36.5); Mean Corpuscular Volume 103 fL (80-100); Mean Platelet Volume 11.4 fL (9.1-12.4); NRBC ABSOLUTE 0.02 K/mm3 (0.00-0.02); NRBC Auto 0.2 /100 WBC (0.0-0.2); Platelet Count 237 K/mm3 (150-400); RDW Coefficient Variation 15.8 % (11.7-14.2); RDW Standard Deviation 59.9 fL (35.1-46.3); Red Blood Cell Count 4.11 M/mm3 (3.80-5.20); White Blood Cell Count 10.04 K/mm3 (4.00-11.30)
[2023-08-31 14:53] LABS: Source, Urine Foley catheter
[2023-08-31 15:36] LABS: BASOPHILS PERCENT MAN 0 % (0-2); EOSINOPHILS PERCENT MAN 0 % (0-6); LYMPHOCYTES ABSOLUTE MAN 6.52 K/mm3 (0.84-5.20); LYMPHOCYTES PERCENT MAN 65 % (21-46); MONOCYTES PERCENT MAN 3 % (4-13); NEUTROPHILS ABSOLUTE MAN 3.31 K/mm3 (1.96-9.15); SEG NEUTROPHILS PERCENT MAN 33 % (41-73); TOTAL CELLS COUNTED 200
[2023-08-31 15:51] LABS: Bilirubin, Urine Neg (Neg); Blood, Urine 1+ (Neg); Color, Urine Yellow (P-Yellow); Glucose Qualitative, Urine Neg (Neg); Ketones, Urine Neg (Neg); Leukocyte Esterase, Urine Neg (Neg); Nitrite, Urine Neg (Neg); Protein, Urine 2+ (Neg); Urobilinogen, Urine NORM (Normal)
[2023-08-31 15:58] LABS: Appearance, Urine Hazy (Clear); Bacteria Mod /hpf; Squamous Epithelial Cells Rare /hpf (Few); White Blood Cells, Urine 0-2 /hpf (0-5)
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
[2023-08-31 16:10] VITALS: BP 0/0
== END 2023-08-31 19:07 ==
LOC: ER 13:50
PROVIDERS: Emergency Medicine
DX: S12.000A Unspecified displaced fracture of first cervical vertebra, initial encounter for closed fracture (principal); S12.120A Other displaced dens fracture, initial encounter for closed fracture; S01.01XA Laceration without foreign body of scalp, initial encounter; I12.0 Hypertensive chronic kidney disease with stage 5 chronic kidney disease or end stage renal disease; N18.6 End stage renal disease; D63.1 Anemia in chronic kidney disease; I48.91 Unspecified atrial fibrillation; J44.9 Chronic obstructive pulmonary disease, unspecified; V78.6XXA Passenger on bus injured in noncollision transport accident in traffic accident, initial encounter; Z88.5 Allergy status to narcotic agent; Z88.8 Allergy status to other drugs, medicaments and biological substances; Z88.4 Allergy status to anesthetic agent; Z79.899 Other long term (current) drug therapy; Z79.51 Long term (current) use of inhaled steroids; Z87.891 Personal history of nicotine dependence
CPT/HCPCS: 12006; 51702; 70450; 71045; 72125; 80047; 80053; 81001; 82803; 85014; 85025; 87086; 93005; 93010; 94002; 96365-59; 99291-25; 99292; G0390; J0461; J1265